=== PATIENT | male | born 1945 | race Caucasian/White ===

== ENCOUNTER → 2017-03-14 | Day surgery (SDC) | payer MEDICARE ==
[~2017-03-14] VITALS: Ht 170.2 cm; Wt 74.4 kg
[~2017-03-14] MED LIST: ASPI81CH CHEW; BUPIVACAINE HCL PF 0.5% 30 ML VIAL ONE; BUPR150XL PO; CARA1TAB6 PO; CARV3.12 PO; CENTTAB20 PO; CHLORHEXIDINE GLUCONATE 2 % 1 PACK (2 CLOTHS) TOPICAL PRN; CILO100T PO; CIPR500T2 PO; CLOP75TA PO; COZA100T PO; DICY10CA12 PO; DIPH2.5T14 PO; FAMOTIDINE 20 MG/2 ML VIAL ONE; FENO145T2 PO; FERR325T8 PO; FURO20TA PO; GLIM4TAB PO; HEPARIN SODIUM - IV 10,000 UNITS/10 ML VIAL ONE; HYDR-2374 PO; HYDR-3516 PO; HYDR-3583 PO; HYOS0.128 PO; INSULIN HUMAN REGULAR 1,000 UNITS/10 ML VIAL SQ PRN; IOHEXOL 300 MG/ML 100 ML BTL (for Rad CT) IVCONTRAST ONE; IOHEXOL 350 MG/ML 50 ML BTL (for RAD DIAG) ONE; LACTATED RINGER'S 1000 ML INJ 1,000 ML ONE; LACTATED RINGER'S 1000 ML IV PRN; LEVO500T8 PO; LIPI40TA PO; METOPROLOL TARTRATE 25 MG TAB ONE; METOPROLOL TARTRATE 25 MG TAB PO PRN; MIDAZOLAM HCL 2 MG/2 ML VIAL ONE; NEOSTIGMINE 3 MG/3 ML SYR IV ONE; NORMOSOL R INJ 1,000 ML IV ONE; OMEP40CA2 PO; ONDANSETRON HCL 4 MG/2 ML VIAL IV PUSH ONE; POVIDONE IODINE 5% (ANTISEPSIS KIT) 4 APPLICATIONS EACH NARE PRN; PREC50TA PO; PROPOFOL 200 MG/20 ML AMP IV ONE; PROS5TAB PO; RANI150C PO; REGL10TA5 PO; ROSU20 PO; SODIUM CHLORID 0.9% 500 ML IV PRN; TAMS0.4C4 PO; TOPR25TA PO; TRAM50TA PO; ULTR50TA5 PO; VITA100018 PO; VITA500T83 PO; ceFAZolin 2 GM PREMIX 50 ML ONE; ePHEDrine/NS 25 MG/5 ML SYR IV ONE; fentaNYL CITRATE 250 MCG/5 ML AMP ONE
[2017-03-14 10:47] LABS: PROTHROMBIN TIME - PATIENT 10.8 SEC (9.8-11.6)
[2017-03-14 10:57] LABS: BICARBONATE 27.4 MEQ/L (21.0-32.0); POTASSIUM 4.1 MEQ/L (3.5-5.1)
--- NOTE | 2017-03-14 11:01 | EKG ---
Date Performed: 03/14/2017 Time Performed: 09:24:15 PTAGE: 71 years EKG: Sinus rhythm WITH SINUS ARRHYTHMIA LEFT AXIS DEVIATION ST/T-WAVE ABNORMALITY, CONSIDER ANTEROLATERAL ISCHEMIA ABN ORMAL ECG NO PREVIOUS TRACING DOCTOR: Shaq Luz Interpretating Date/Time 03/14/2017 11:01:21
--- NOTE | 2017-03-14 11:36 | PD.VS.PN ---
Pre-operative Note Pre-operative diagnosis: chronic symptomatic mesenteric ischemia Planned procedure: mesenteric angiogram/DEPARTMENT STORE GENERAL MANAGER/stent Interval History: Pt has no interval changes since I saw him in clinic on Saturday. Labs: Laboratory Results Test 03/14/17 10:20 Anion Gap 7 MEQ/L (5-15) Blood Urea Nitrogen 17 MG/DL (7-18) Creatinine 1.01 MG/DL (0.60-1.30) Random Glucose 133 MG/DL (74-106) Calcium Level 7.9 MG/DL (8.5-10.1) Sodium Level 138 MEQ/L (136-145) Potassium Level 4.1 MEQ/L (3.5-5.1) Chloride Level 104 MEQ/L (98-107) Carbon Dioxide Level 27.4 MEQ/L (21.0-32.0) Prothromb Time International Ratio 1.0 RATIO Blood: none needed Orders: NPO Ancef 2g IV OCTOR Post-operative destination: PACU Operative site marked: No Consent: Informed consent has been obtained from Jefferson Streeter. I have explained the procedure in detail and discussed the risks, benefits, and potential complications. All questions have been answered. Jose Chau MD Mar 14, 2017 11:36
[2017-03-14 12:10] LABS: AUTOMATED NEUTROPHIL # 8.1 TH/MM3 (1.8-7.7); BASOPHIL % 0.4 % (0.0-2.0); EOSINOPHIL % 0.3 % (0.0-4.0); HEMATOCRIT 31.4 % (39.0-51.0); HEMO FLAGS DIFF FINAL; LYMPH % 13.8 % (9.0-44.0); LYMPHOCYTE # 1.4 TH/MM3 (1.0-4.8); MEAN CELL VOLUME 88.4 FL (80.0-100.0); MEAN CORPUSCULAR HEMOGLOBIN 28.5 PG (27.0-34.0); MEAN CORPUSCULAR HGB CONC 32.2 % (32.0-36.0); MONO % 7.2 % (0.0-8.0); NEUT % 78.3 % (16.0-70.0); PLATELET COUNT 311 TH/MM3 (150-450); RED BLOOD COUNT 3.55 MIL/MM3 (4.50-5.90); RED CELL DISTRIBUTION WIDTH 18.5 % (11.6-17.2); WHITE BLOOD COUNT 10.3 TH/MM3 (4.0-11.0)
--- NOTE | 2017-03-14 13:43 | HHI.PR ---
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
--- NOTE | 2017-03-14 16:20 | ECHRPT ---
Indication: EF assessment for CHF CONCLUSIONS Limited study Mildly dilated left ventricle. Wall thickness is measured at the upper limits of normal. The left ventricular systolic function is severely reduced with an estimated ejection fraction in th e range of 30-35%. There is diffuse global hypokinesis with distinct regional wall motion abnormalities. The left atrial size is upper limits of normal. A left sided pleural effusion is noted. BP: / HR: Rhythm: Sinus Technical Quality:Fair FINDINGS LEFT VENTRICLE Mildly dilated left ventricle. Wall thickness is measured at the upper limits of normal. The left ventricular systolic function is severely reduced with an estimated ejection fraction in th e range of 30-35%. There is diffuse global hypokinesis with distinct regional wall motion abnormalities. LEFT ATRIUM The left atrial size is upper limits of normal. PERICARDIUM A left sided pleural effusion is noted. Brenden Garcia MD, FACC (Electronically Signed) Final Date:14 March 2017 16:19
[2017-03-14 16:47] VITALS: BP 144/56; PULSE 68; RESP 16; TEMP 97.6; O2SAT 99
--- NOTE | 2017-03-16 23:59 | MP ---
cc: JOSÉ MIGUEL CHAU MD DATE OF SURGERY 03/14/17 PREOPERATIVE DIAGNOSIS Chronic mesenteric ischemia. POSTOPERATIVE DIAGNOSIS Chronic mesenteric ischemia. PROCEDURE Abdominal aortogram. MEDICATIONS José Miguel Chau MD INTERNATIONAL SALES MANAGER SURGEON Nain Kenyon ANESTHESIA Genera. INDICATION Mr. Streeter is a 71-year-old gentleman with mesenteric ischemia manifesting as post prandial abdominal pain. He is taken to the operating room for angiographic evaluation and potential treatment. There is no prior catheter based imaging for my review. 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 DESCRIPTION OF PROCEDURE Informed consent was obtained. The patient is taken to the operating room, placed supine on the operating table. Appropriate time-out was taken to ensure the patient, the operation site and planned procedure. The administration of 2 grams of Ancef was initiated prior to skin incision and will be discontinued after single preoperative dose. Everyone in the room agreed to time-out and we proceeded. His left arm was prepped and draped and locally anesthetized with 1% lidocaine. An incision was made over the distal antecube and carried down to subcutaneous tissue with electrocautery. The brachial artery was identified, dissected free of several centimeters. The patient was systemically heparinized with 3000 of IV heparin. A 21 gauge micropuncture needle was used to access the brachial artery. This was exchanged using Seldinger technique for micropuncture sheath through which a 0.035 Glidewire was introduced, the micropuncture was exchanged for a 5-Turkish sheath and the Glidewire was navigated to the aortic arch and a pigtail catheter was placed over this. Using the pigtail and Glidewire we were able to navigate down into the perivisceral aorta. The lateral aortogram was obtained. This showed the patient had occlusions of both the SMA and celiac. The Glidewire was introduced. The pigtail was removed. The 5-Turkish sheath was removed and a 7-Turkish 70 cm sheath was introduced. Multiple attempts using an MPA catheter for directionality and a vertebral catheter for directionality were made to traverse the SMA occlusion but these were unsuccessful. Wire, catheter and sheath removed. The brachial artery was repaired with 6-0 Prolene sutures. The wound was infiltrated with lidocaine and closed with 3-0 Polysorb and 4-0 Monocryl. At the conclusion of the case the patient had a patent ulnar artery as the patient had a prior radial artery harvest for a coronary bypass. The patient is awoke from anesthesia and transferred to the recovery room in stable condition. I was present, scrubbed and performed the entire procedure. INTERPRETATION The patient has a patent infrarenal aorta with a small infrarenal aortic aneurysm. 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 José Miguel Chau MD RJF/GAGE /4:52 PM /11:38 PM MTDJeff
== END | disposition home or self-care (01) ==
LOC: HSDC 08:22
PROVIDERS: ATTEND Surgery
DX: K55.1 Chronic vascular disorders of intestine (principal); I71.9 Aortic aneurysm of unspecified site, without rupture; I73.9 Peripheral vascular disease, unspecified; E11.9 Type 2 diabetes mellitus without complications; E78.5 Hyperlipidemia, unspecified; R06.81 Apnea, not elsewhere classified; I65.29 Occlusion and stenosis of unspecified carotid artery; I25.2 Old myocardial infarction; E78.00 Pure hypercholesterolemia, unspecified; Z79.84 Long term (current) use of oral hypoglycemic drugs; Z87.891 Personal history of nicotine dependence
CPT/HCPCS: 01916; 36246; 75736; 80048; 82948; 85025; 85610; 86850; 86900; 86901; 86902; 86920; 86922; 93005; 93308; C1769; J0690; J1644; J2250; J2405; J2710; J3010; J7120; Q9967

== ENCOUNTER 2017-04-02 08:30 | Inpatient (IN) | payer MEDICARE ==
[~2017-04-02] VITALS: Ht 170.2 cm; Wt 79.0 kg
[~2017-04-02 08:30] MED LIST changes: -BUPIVACAINE HCL PF 0.5% 30 ML VIAL ONE; -CARA1TAB6 PO; -CARV3.12 PO; -CENTTAB20 PO; -CHLORHEXIDINE GLUCONATE 2 % 1 PACK (2 CLOTHS) TOPICAL PRN; -CIPR500T2 PO; -CLOP75TA PO; -DICY10CA12 PO; -DIPH2.5T14 PO; -FAMOTIDINE 20 MG/2 ML VIAL ONE; -FENO145T2 PO; -FURO20TA PO; -HEPARIN SODIUM - IV 10,000 UNITS/10 ML VIAL ONE; -HYDR-2374 PO; -HYDR-3516 PO; -HYDR-3583 PO; -HYOS0.128 PO; -INSULIN HUMAN REGULAR 1,000 UNITS/10 ML VIAL SQ PRN; -IOHEXOL 300 MG/ML 100 ML BTL (for Rad CT) IVCONTRAST ONE; -IOHEXOL 350 MG/ML 50 ML BTL (for RAD DIAG) ONE; -LACTATED RINGER'S 1000 ML INJ 1,000 ML ONE; -LACTATED RINGER'S 1000 ML IV PRN; -LEVO500T8 PO; -LIPI40TA PO; -METOPROLOL TARTRATE 25 MG TAB ONE; -METOPROLOL TARTRATE 25 MG TAB PO PRN; -MIDAZOLAM HCL 2 MG/2 ML VIAL ONE; -NEOSTIGMINE 3 MG/3 ML SYR IV ONE; -NORMOSOL R INJ 1,000 ML IV ONE; -OMEP40CA2 PO; -ONDANSETRON HCL 4 MG/2 ML VIAL IV PUSH ONE; -POVIDONE IODINE 5% (ANTISEPSIS KIT) 4 APPLICATIONS EACH NARE PRN; -PREC50TA PO; -PROPOFOL 200 MG/20 ML AMP IV ONE; -RANI150C PO; -SODIUM CHLORID 0.9% 500 ML IV PRN; -TAMS0.4C4 PO; -TOPR25TA PO; -TRAM50TA PO; -ULTR50TA5 PO; -VITA100018 PO; -ceFAZolin 2 GM PREMIX 50 ML ONE; -ePHEDrine/NS 25 MG/5 ML SYR IV ONE; -fentaNYL CITRATE 250 MCG/5 ML AMP ONE
[2017-04-08 14:23] LABS: HEMATOCRIT 31.8 % (39.0-51.0); MEAN CELL VOLUME 87.9 FL (80.0-100.0); MEAN CORPUSCULAR HEMOGLOBIN 28.9 PG (27.0-34.0); MEAN CORPUSCULAR HGB CONC 32.9 % (32.0-36.0); PLATELET COUNT 313 TH/MM3 (150-450); RED BLOOD COUNT 3.61 MIL/MM3 (4.50-5.90); REVIEW FLAG FINAL
[2017-04-08 14:29] LABS: BLOOD, URINE NEG (NEG); GLUCOSE,URINE NEG (NEG); HYALINE CAST, URINE 7 /lpf (RARE); KETONE, URINE NEG (NEG); NITRITE,URINE NEG (NEG); SQUAMOUS EPITHELIAL CELL URINE <1 /hpf (0-5); URINE COLOR YELLOW (YELLW/STRAW)
[2017-04-08 14:32] LABS: COMMENT (UR) CULT NOT INDICATED; CULTURE IF INDICATED CULT NOT INDICATED
[2017-04-08 14:38] LABS: PROTHROMBIN TIME - PATIENT 10.6 SEC (9.8-11.6)
[2017-04-08] MEDS ORDERED: DIPH2.5T14 PO (14:38)
[2017-04-08] MEDS ORDERED: CARV3.12 PO (14:38)
[2017-04-08] MEDS ORDERED: FURO20TA PO (14:38)
[2017-04-08] MEDS ORDERED: VITA100018 PO (14:38)
[2017-04-08] MEDS ORDERED: CENTTAB20 PO (14:38)
[2017-04-08] MEDS ORDERED: RANI150C PO (14:38)
[2017-04-08] MEDS ORDERED: FENO145T2 PO (14:38)
[2017-04-08] MEDS ORDERED: DICY10CA12 PO (14:38)
[2017-04-08] MEDS ORDERED: TRAM50TA PO (14:38)
[2017-04-08] MEDS ORDERED: TAMS0.4C4 PO (14:38)
[2017-04-08] MEDS ORDERED: CLOP75TA PO (14:38)
[2017-04-08] MEDS ORDERED: OMEP40CA2 PO (14:38)
[2017-04-08] MEDS ORDERED: HYDR-3583 PO (14:38)
[2017-04-08] MEDS ORDERED: HYOS0.128 PO (14:38)
[2017-04-08 14:45] LABS: BICARBONATE 28.9 MEQ/L (21.0-32.0); POTASSIUM 3.7 MEQ/L (3.5-5.1)
[2017-04-09] VITALS (10 sets, daily range): BP systolic 93–115; BP diastolic 30–51; PULSE 92–103; RESP 15–18; TEMP 97.6–98.1; O2SAT 95–100
[2017-04-09] MEDS: LACTATED RINGER'S 1000 ML IV PRN ×2 (07:00→15:52)
[2017-04-09] MEDS ORDERED: INSULIN HUMAN REGULAR 1,000 UNITS/10 ML VIAL SQ PRN (07:15)
[2017-04-09] MEDS ORDERED: SODIUM CHLORID 0.9% 500 ML IV PRN (07:15)
[2017-04-09] MEDS ORDERED: POVIDONE IODINE 5% (ANTISEPSIS KIT) 4 APPLICATIONS EACH NARE PRN (07:15)
[2017-04-09] MEDS ORDERED: CHLORHEXIDINE GLUCONATE 2 % 1 PACK (2 CLOTHS) TOPICAL PRN (07:15)
[2017-04-09] MEDS ORDERED: METOPROLOL TARTRATE 25 MG TAB PO PRN (07:15)
[2017-04-09] MEDS ORDERED: IRR SCH (07:30)
[2017-04-09] MEDS ORDERED: SODIUM CHLORIDE 0.9% SCH (07:30)
[2017-04-09] MEDS ORDERED: RIFAMPIN SCH (07:30)
[2017-04-09] MEDS ORDERED: CARV3.12 PO (07:38)
[2017-04-09] MEDS ORDERED: SUGAMMADEX SODIUM 200 MG/2 ML VIAL IV PUSH ONE ×2 (08:10)
--- NOTE | 2017-04-09 08:29 | PD.VS.PN ---
Pre-operative Note Pre-operative diagnosis: chronic mesenteric ischemia Planned procedure: mesenteric bypass Interval History: Pt has been feeling well, no peritonitis. Labs: pending Blood: T&C 4U EKG: TTE showed EF 35% Imaging: CTA reviewed - anatomy amenable to mesenteric bypass off supraceliac aorta Operative site marked: No (N/A (midline)) Consent: Informed consent has been obtained from Jefferson Streeter. I have explained the procedure in detail and discussed the risks, benefits, and potential complications. All questions have been answered. Jose Chau MD Apr 09, 2017 08:29
[2017-04-09] MEDS: ceFAZolin 2 GM PREMIX 50 ML ONE ×2 (09:00→10:00)
[2017-04-09] MEDS ORDERED: GLUCAGON 1 MG/ML VIAL OTHER PRN (09:15)
[2017-04-09] MEDS ORDERED: DICYCLOMINE HCL 10 MG CAP PO PRN (09:15)
[2017-04-09] MEDS ORDERED: DIPHENOXYLATE/ATROPINE 2.5 MG/0.025 MG TAB PO PRN (09:15)
[2017-04-09] MEDS ORDERED: DEXTROSE 50% IN WATER 50 ML VIAL(D50) IV PUSH PRN (09:15)
[2017-04-09] MEDS ORDERED: NALOXONE HCL 0.4 MG/ML AMP IV PUSH PRN (09:15)
[2017-04-09] MEDS: ENOXAPARIN SODIUM 30 MG/0.3 ML SYRINGE SQ SCH (10:00)
[2017-04-09] MEDS ORDERED: HEPARIN-NS/PF INJ 500 ML ONE (10:16)
[2017-04-09] MEDS ORDERED: THROMBIN (TOPICAL) 20,000 UNIT SPRAY KIT ONE ×2 (10:16→12:32)
[2017-04-09] MEDS: INSULIN ASPART SUPPLEMENTAL SCALE SQ SCH ×3 (12:00→21:01)
[2017-04-09] MEDS: METOCLOPRAMIDE HCL 10 MG TAB PO SCH ×2 (12:00→17:14)
[2017-04-09] MEDS ORDERED: ACETAMINOPHEN 1000 MG/100 ML 100 ML IV ONE (12:34)
[2017-04-09] MEDS ORDERED: ceFAZolin INJ 1,000 MG VIAL IV ONE (12:51)
--- NOTE | 2017-04-09 13:27 | HHI.PR ---
Immediate Post Op Note Procedure Date: Apr 09, 2017 Pre Op Diagnosis: chronic mesenteric ischemia Post Op Diagnosis: chronic mesenteric ischemia Surgeon: Jose Chau Mine Supervisor(s): Dara Reagan Procedure: Aortoceliac and Aorto-SMA bypass with 12x6 Dacron Findings: Patent graft pulses and normal bowel and liver appearance post-operatively Complications: none apparent Specimen(s) removed: none Estimated blood loss: 700mL Anesthesia: General Drains: None Fluids: 5000mL x'oid; 2u FFP; 2u PRBC IVF Patient to: Other ([facility]) Patient Condition: Fair Implant/Devices: SEE IMPLANT LOG (if applicable) Date/Time of Procedure: SEE SURGICAL CARE RECORD Jose Chau MD Apr 09, 2017 13:27
[2017-04-09] MEDS: PCA - TOTAL MG MORPHINE DELIVERED PER SHIFT SCH ×2 (14:00→22:00)
--- NOTE | 2017-04-09 14:48 | RADRPT ---
EXAM DATE/TIME: 04/09/2017 14:04 [facility] COMPARISON: CHEST PA & LAT, April 08, 2017, 15:14. INDICATIONS : Central line placement. MEDICAL HISTORY : None. SURGICAL HISTORY : cardiac bypass ENCOUNTER: Initial ACUITY: 1 day PAIN SCORE: Non-responsive. LOCATION: Bilateral chest FINDINGS: There is a nasogastric tube present. The distal portion of the tube is not visualized. The tube does appear to overlie the stomach. The heart is normal in size. The lungs are clear. There is no pneumothorax. The patient is post median sternotomy. The top 2 sternal wires are no longer intact. The request states evaluate central line placement. No central venous catheter is seen. There is an abnormal appearance of the right clavicle suggesting a possible right clavicular fracture . Repeat, dedicated films of the clavicle is warranted. CONCLUSION: 1. Possible fracture of the right clavicle. Dedicated films of the clavicle would be of benefit for f urther assessment. 2. The lungs are clear. 3. No central venous catheter identified. Dionte Bush MD on April 09, 2017 at 14:44 Board Certified Radiologist. This report was verified electronically.
[2017-04-09 15:01] LABS: HEMATOCRIT 22.6 % (39.0-51.0); MEAN CELL VOLUME 87.3 FL (80.0-100.0); MEAN CORPUSCULAR HEMOGLOBIN 28.4 PG (27.0-34.0); MEAN CORPUSCULAR HGB CONC 32.6 % (32.0-36.0); PLATELET COUNT 201 TH/MM3 (150-450); RED BLOOD COUNT 2.59 MIL/MM3 (4.50-5.90); RED CELL DISTRIBUTION WIDTH 16.1 % (11.6-17.2); REVIEW FLAG FINAL; WHITE BLOOD COUNT 15.5 TH/MM3 (4.0-11.0)
[2017-04-09] MEDS: MORPHINE SULFATE 30 MG/30 ML PCA IV SCH (15:12)
[2017-04-09 15:28] LABS: BICARBONATE 27.5 MEQ/L (21.0-32.0)
[2017-04-09 15:29] LABS: INTERNATIONAL NORMALIZED RATIO 1.1 RATIO; PROTHROMBIN TIME - PATIENT 11.7 SEC (9.8-11.6)
[2017-04-09] MEDS ORDERED: ceFAZolin 1,000 MG/NS 100 ML IV ONE ×2 (15:30)
[2017-04-09 15:41] LABS: CALCIUM-PROTEIN CORRECTED 8.6 MG/DL (8.5-10.1)
[2017-04-09] MEDS ORDERED: SODIUM CHLOR 0.9% 1000 ML INJ 1,000 ML IV SCH (16:00)
[2017-04-09] MEDS ORDERED: SODIUM CHLOR 0.9% 250 ML INJ 250 ML IV ONE (16:00)
--- NOTE | 2017-04-09 16:18 | PD.CONS ---
HPI Service Critical Care Medicine Consult Requested By Dr. Chau, [facility] Surgery Reason for Consult Coronary artery disease, cardiomyopathy with ejection fraction 35%, with noted MAC Primary Care Physician Non-Staff History of Present Illness This is a 71-year-old male who presented with chronic mesenteric ischemia and is S/P mesenteric bypass . Patient's history is significant for atherosclerosis with a history of PA and has underwent a CABG in 1998 as well as endovascular angioplasties with right femoral stent placement in 2005, as well as carotid stenosis with left CEA. Upon evaluation for surgery the patient was noted to have a small 3.7 cm AAA. The patient underwent mesenteric bypass and received 5 L of crystalloid, 2 units of FFP, 2 units of packed red blood cells. Acute pain management currently is SENIOR ANIMAL TRAINER with morphine. The patient has a history of obstructive sleep apnea, upon evaluation the patient does not utilize his BiPAP machine regularly with current O2 sat ranging 94-95% . Currently systolic blood pressure high 80s to low 90 .Critical care medicine was consulted. Review of Systems ROS Limitations: Clinical Condition Past Family Social History Allergies: Coded Allergies: No Known Allergies (Unverified , 04/09/17) Past Medical History PAD, PVD, hyperlipidemia, history of PA, diabetes mellitus, BPH, MAC Past Surgical History CABG, bilateral lower extremity endovascular interventions to include right femoral stent placement, right peroneal angioplasty, left SFA angioplasty, left external iliac angioplasty Reported Medications see MAR Active Ordered Medications see MAR Family History Unable to obtain due to patient's clinical condition extremely lethargic postoperatively Social History 30 year pack year history of smoking, quit 1998 Physical Exam Vital Signs Vital Signs Date Time Temp Pulse Resp B/P (MAP) Pulse Ox O2 Delivery O2 Flow Rate FiO2 04/09/17 15:31 94 04/09/17 15:23 97.6 93 18 115/30 (58) 95 04/09/17 15:21 18 04/09/17 15:12 18 04/09/17 07:43 97.9 69 20 156/62 (93) 100 Physical Exam GENERAL: Well-developed well-nourished male, lethargic but easily arousable SKIN: Warm and dry. HEAD: Atraumatic. Normocephalic. EYES: Pupils equal and round. No scleral icterus. No injection or drainage. ENT: No nasal bleeding or discharge. Mucous membranes pink and moist. NECK: Trachea midline. No JVD. Well-healed left neck scar CARDIOVASCULAR: Normal rate, regular rhythm. RESPIRATORY: No accessory muscle use. Clear to auscultation. Breath sounds equal bilaterally. O2 saturation 95% on 3 L GASTROINTESTINAL: Abdomen soft, non-tender, nondistended. Incision was Dermabond, no erythema drainage noted Hypoactive bowel sounds MUSCULOSKELETAL: Extremities without clubbing, cyanosis, or edema. No obvious deformities. NEUROLOGICAL lethargic, easily arousable. GCS 15. No gross focal/sensory deficits. Follows commands in all 4 extremities. Laboratory Laboratory Tests Test 04/09/17 14:15 White Blood Count 15.5 Red Blood Count 2.59 Hemoglobin 7.4 Hematocrit 22.6 Mean Corpuscular Volume 87.3 Mean Corpuscular Hemoglobin 28.4 Mean Corpuscular Hemoglobin Concent 32.6 Red Cell Distribution Width 16.1 Platelet Count 201 Mean Platelet Volume 7.9 Prothrombin Time 11.7 Prothromb Time International Ratio 1.1 Blood Urea Nitrogen 16 Creatinine 0.84 Random Glucose 205 Total Protein 5.0 Calcium Level 7.4 Sodium Level 140 Potassium Level 4.0 Chloride Level 105 Carbon Dioxide Level 27.5 Anion Gap 8 Estimat Glomerular Filtration Rate 90 Protein Corrected Calcium 8.6 Result Diagram: 04/09/17 1415 04/09/17 1415 Imaging Last Impressions Chest X-Ray 04/09/17 0000 Signed Impressions: Service Date/Time: Sunday, April 09, 2017 14:04 - CONCLUSION: 1. Possible fracture of the right clavicle. Dedicated films of the clavicle would be of benefit for further assessment. 2. The lungs are clear. 3. No central venous catheter identified. Dionte Bush MD Septic Shock Reassessment Heart: Regular rate and rhythm Lungs: Clear Skin: Warm Peripheral Pulses: Bounding Right Radial Bounding Left Radial Bounding Right Dorsalis Pedis Bounding Left Dorsalis Pedis Assessment and Plan Assessment and Plan ASSESSMENT S/P mesenteric bypass Anemia Cardiomyopathy Hyperlipidemia MAC Diabetes mellitus BPH Hypotension PLAN Neurologic: Postop pain Currently SENIOR ANIMAL TRAINER morphine 1 mg every 6 minutes on demand only. Patient has history of MAC Ofirmev 1 g every 6 hours Respiratory: Maintain O2 sat greater than 92% Begin incentive spirometry in a.m. BiPAP at night, Have available at bedside Cardiovascular: Renal: Maintain Mcdermott -- Strict I/Os FEN/GI: Maintenance fluid NS 50cc/hr NG tube to low continuous suction Electrolyte replacement per ICU protocol Nothing by mouth, with the exception of medications Bowel regimen Heme/ID: Hemoglobin postoperatively 7.4. Transfuse 1 unit Obtain cultures only if clinically indicated WBC slightly elevated most likely reactive leukocytosis postoperatively Endocrine: Glucose monitoring per ICU protocol -- SSI Prophylaxis: GI Prophylaxis Protonix, Pepcid DVT Prophylaxis -- SCDs. Lovenox to be initiated on recommendations of vascular surgery Lines: Peripheral IVs providing adequate access at this time. Right radial Art line. Dispo: my billing statement This patient remains critically ill with one or more organ systems which are or may become a threat to life. I have spent in excess of 30 minutes discontinuously in the care and management of this patient. This time is exclusive of procedures, and includes, but is not limited to, evaluation of the patient, review of the medical record, discussions with family, consultants, nursing staff, or respiratory therapy, and documentation in the medical record. Code Status Full Discussed Condition With CIVIL DESIGN TECHNICIAN at bedside. Eva Roach MD Apr 09, 2017 16:18
[2017-04-09] MEDS: ACETAMINOPHEN 1000 MG/100 ML VIAL IV SCH (18:34)
[2017-04-09 19:57] LABS: HEMATOCRIT 24.4 % (39.0-51.0); MEAN CELL VOLUME 85.9 FL (80.0-100.0); MEAN CORPUSCULAR HEMOGLOBIN 28.4 PG (27.0-34.0); PLATELET COUNT 182 TH/MM3 (150-450); RED BLOOD COUNT 2.84 MIL/MM3 (4.50-5.90); RED CELL DISTRIBUTION WIDTH 15.9 % (11.6-17.2); REVIEW FLAG FINAL; WHITE BLOOD COUNT 16.1 TH/MM3 (4.0-11.0)
[2017-04-09] MEDS: buPROPion HCL 150 MG SUSTAINED RELEASE TAB PO SCH (20:58)
[2017-04-09] MEDS: CARVEDILOL 6.25 MG TAB PO SCH (21:00)
[2017-04-09] MEDS: FUROSEMIDE 20 MG TAB PO SCH (21:00)
[2017-04-09] MEDS: LOSARTAN 50 MG TAB PO SCH (21:00)
[2017-04-09] MEDS: FENOFIBRATE 145 MG TAB PO SCH (21:00)
[2017-04-09] MEDS: TAMSULOSIN HCL 0.4 MG CAP PO SCH (21:00)
[2017-04-09] MEDS: ATORVASTATIN 40 MG TAB PO SCH (21:00)
[2017-04-09] MEDS: GLIMEPIRIDE 4 MG TAB PO SCH (21:00)
[2017-04-09] MEDS: prednisoLONE ACETATE 1% OPHT SUSP 5 ML BTL EACH EYE SCH (21:14)
[2017-04-09 22:57] LABS: HEMATOCRIT 24.3 % (39.0-51.0); REVIEW FLAG FINAL
[2017-04-09 23:16] LABS: PROTHROMBIN TIME - PATIENT 11.4 SEC (9.8-11.6)
[2017-04-10] VITALS (9 sets, daily range): BP systolic 90–136; BP diastolic 45–63; PULSE 95–100; RESP 15–18; TEMP 97.8–98.8; O2SAT 95–99
[2017-04-10] MEDS: ACETAMINOPHEN 1000 MG/100 ML VIAL IV SCH ×4 (03:31→18:22)
[2017-04-10 04:46] LABS: HEMATOCRIT 25.6 % (39.0-51.0); MEAN CELL VOLUME 84.9 FL (80.0-100.0); MEAN CORPUSCULAR HEMOGLOBIN 28.8 PG (27.0-34.0); PLATELET COUNT 163 TH/MM3 (150-450); RED BLOOD COUNT 3.01 MIL/MM3 (4.50-5.90); REVIEW FLAG FINAL; WHITE BLOOD COUNT 12.9 TH/MM3 (4.0-11.0)
[2017-04-10 05:09] LABS: BICARBONATE 26.4 MEQ/L (21.0-32.0); INDIRECT BILIRUBIN 0.3 MG/DL (0.0-0.8); POTASSIUM 4.2 MEQ/L (3.5-5.1); TOTAL BILIRUBIN ADULT 0.5 MG/DL (0.2-1.0)
[2017-04-10 05:15] LABS: CALCIUM-PROTEIN CORRECTED 8.5 MG/DL (8.5-10.1)
[2017-04-10] MEDS: PCA - TOTAL MG MORPHINE DELIVERED PER SHIFT SCH ×3 (05:53→22:00)
[2017-04-10] MEDS: MORPHINE SULFATE 30 MG/30 ML PCA IV SCH ×2 (06:30→18:21)
--- NOTE | 2017-04-10 07:00 | PD.VS.PN ---
Subjective POD #: 1 Procedure(s): mesenteric bypass Subjective/Hospital Course borderline hypotensive last night (90's) but responded to fluid UOP marginal this morning, looks good Objective Neuro: alert, HANSON, c/o incisional pain but using CULLET CRUSHER AND WASHER Pulmonary: nonlabored breathing, good sats on NC O2 post-op CXR clear Cardiac: reg rate, HR 90s most of night bp 90/50 to 150-90 FEN/GI: NPO; NGT - bilious output elevated transaminase expected given reperfusion and liver mobilization intra-op : UOP avg 20cc/h (10-40); creatinine increased to 1.7 ID Antibiotics(date/duration): none ID Cultures: none Heme: Hct 26 plt 163 INR 1.0 Vascular: Feet warm, perfused (h/o PAD) Laboratory Laboratory Tests Test 04/09/17 14:15 04/09/17 19:42 04/09/17 22:46 04/10/17 04:18 White Blood Count 15.5 16.1 12.9 Red Blood Count 2.59 2.84 3.01 Hemoglobin 7.4 8.1 7.9 8.7 Hematocrit 22.6 24.4 24.3 25.6 Mean Corpuscular Volume 87.3 85.9 84.9 Mean Corpuscular Hemoglobin 28.4 28.4 28.8 Mean Corpuscular Hemoglobin Concent 32.6 33.0 34.0 Red Cell Distribution Width 16.1 15.9 16.0 Platelet Count 201 182 163 Mean Platelet Volume 7.9 7.8 8.4 Prothrombin Time 11.7 11.4 Prothromb Time International Ratio 1.1 1.0 Blood Urea Nitrogen 16 27 Creatinine 0.84 1.76 Random Glucose 205 167 Total Protein 5.0 5.1 Calcium Level 7.4 7.4 Sodium Level 140 141 Potassium Level 4.0 4.2 Chloride Level 105 106 Carbon Dioxide Level 27.5 26.4 Anion Gap 8 9 Estimat Glomerular Filtration Rate 90 38 Protein Corrected Calcium 8.6 8.5 Activated Partial Thromboplast Time 25.0 Albumin 2.5 Alkaline Phosphatase 46 Aspartate Amino Transf (AST/SGOT) 343 Alanine Aminotransferase (ALT/SGPT) 237 Total Bilirubin 0.5 Direct Bilirubin 0.2 Indirect Bilirubin 0.3 Imaging Last 48 hours Impressions Chest X-Ray 04/09/17 0000 Signed Impressions: Service Date/Time: Sunday, April 09, 2017 14:04 - CONCLUSION: 1. Possible fracture of the right clavicle. Dedicated films of the clavicle would be of benefit for further assessment. 2. The lungs are clear. 3. No central venous catheter identified. Dionte Bush MD Assessment and Plan Plan POD#1 s/p mesenteric bypass still volume avid as expected 1. Increase MIVF to 84/h 2. Recheck BMP, CBC at 1400 3. OOB TC 4. NPO except ice chips; keep NGT to LCWS Jose Chau MD Apr 10, 2017 07:00
[2017-04-10] MEDS: D5-1/2 NS + KCL 20 MEQ INJ 1,000 ML IV SCH ×2 (07:39→18:21)
[2017-04-10] MEDS: INSULIN ASPART SUPPLEMENTAL SCALE SQ SCH ×4 (07:40→21:00)
[2017-04-10] MEDS: METOCLOPRAMIDE HCL 10 MG TAB PO SCH ×3 (07:40→17:35)
[2017-04-10] MEDS: ASPIRIN 81 MG CHEW TAB CHEW SCH (08:30)
[2017-04-10] MEDS: FINASTERIDE 5 MG TAB PO SCH (08:30)
[2017-04-10] MEDS: FAMOTIDINE 20 MG TAB PO SCH (08:30)
[2017-04-10] MEDS: TAMSULOSIN HCL 0.4 MG CAP PO SCH ×2 (08:30→22:09)
[2017-04-10] MEDS: CARVEDILOL 6.25 MG TAB PO SCH ×2 (08:30→22:08)
[2017-04-10] MEDS: CHOLECALCIFEROL (VIT D3) 1000 UNIT TAB PO SCH (08:30)
[2017-04-10] MEDS: MULTIVITAMINS/MINERALS THERAPEUTIC TAB PO SCH (08:30)
[2017-04-10] MEDS: GLIMEPIRIDE 4 MG TAB PO SCH ×2 (08:31→22:08)
[2017-04-10] MEDS: PANTOPRAZOLE SOD 40 MG DELAYED RELEASE TAB PO SCH (08:31)
[2017-04-10] MEDS: prednisoLONE ACETATE 1% OPHT SUSP 5 ML BTL EACH EYE SCH ×2 (08:31→22:09)
[2017-04-10] MEDS: buPROPion HCL 150 MG SUSTAINED RELEASE TAB PO SCH ×2 (08:35→22:08)
[2017-04-10] MEDS ORDERED: NON-FORMULARY DRUG (Ascorbic Acid ER (Vitamin C ER) 1,000 MG) PO SCH (09:00)
[2017-04-10] MEDS: ENOXAPARIN SODIUM 30 MG/0.3 ML SYRINGE SQ SCH (10:00)
--- NOTE | 2017-04-10 10:31 | MP ---
cc: JOSÉ MIGUEL CHAU MD DATE OF SURGERY 04/09/2017 PREOPERATIVE DIAGNOSIS Chronic mesenteric ischemia. POSTOPERATIVE DIAGNOSIS Chronic mesenteric ischemia. PROCEDURE 1. Aorta celiac bypass. 2. Aorta SMA bypass. MEDICATIONS José Miguel Chau MD ANESTHESIA General INDICATIONS Mr. Streeter is an 71-year-old gentleman with chronic mesenteric ischemia, ventral artery occlusive disease and post prandial abdominal pain and an intentional 40 pounds weight loss. He is taken off room for mesenteric bypass after failed endovascular therapy. DESCRIPTION OF THE PROCEDURE Informed consent was obtained from the patient. He was taken to the operating room and placed supine on the operating room table and an appropriate time-out was taken to ensure the patient's identity, operative site and planned procedure. The administration of two grams of Kefzol was initiated prior to the skin incision and will be discontinued after a single preoperative dose. Everyone in the room agreed with the time-out and we proceeded. A midline incision was made in the patient's xiphoid down to his umbilicus, carried down through the subcutaneous tissue with electrocautery. The fascia was divided with electrocautery and the peritoneum was sharply divided. The abdominal contents were explored and there was no untoward pathology. The left lobe of the liver was mobilized by dividing the triangular ligament. The kerrie of the diaphragm was divided thereby exposing the supraceliac aorta. In the infra mesenteric abdomen, the superior mesenteric artery was divided by incising the peritoneum and dissecting down to the mesenteric artery. This was easily dissected free and circled with a Vesseloop. The kerrie of the diaphragm was then divided further with electrocautery thereby exposing the supraceliac aorta sufficient enough to place two clamp on this. The dissection was then continued down to the celiac artery which was encircled with a Vesseloop. The patient was systemically heparinized and through the remainder of the case, the ACT was kept greater than 250. Proximal and distal control of the supraceliac aorta was obtained with a Zinger's and a DeBakey aortic clamp and a longitudinal arteriotomy was made with an 11 blade and extended with Corning scissors. A 12 x 6 Dacron was brought up on the field, spatulated and sewn end-to-side with running 4-0 Prolene suture. At the completion, it was flushed and noted to be hemostatic with several pledgeted repair sutures. The posterior limb was cut very short and it was sewn end-to-side to the hepatic artery by clamping the hepatic artery proximally and distally making a longitudinal arteriotomy and filling it end-to-side with running 6-0 Prolene suture. At the completion it was flushed and noted to be hemostatic. There was a nice pulse in the hepatic artery. The SMA limb was then attempted to be brought behind the pancreas, but there was then inflammation and as such was brought medially around the pancreas and the SMA was clamped proximally and distally and a longitudinal arteriotomy was made with an 11 blade and extended with Corning scissors and the SMA limb was cut to an appropriate length, spatulated and sewn end-to-side with running 6-0 Prolene suture. At the completion, it was flushed and noted to be hemostatic. There was nice pulse in the SMA. The bowel appeared viable. The liver appeared viable. The wound was irrigated, made hemostatic. The heparin was reversed with protamine. Two units of FFP were administered. All the wounds made hemostatic and the abdominal cavity was closed with #1 looped PDS, 2-0 Monocryl and 4-0 Polysorb. The sponge and needle counts were correct at the end of the case. I was present, scrubbed and performed the entire procedure. MD NERISSA Duvall/ROBERTO /10:19 PM /9:58 AM
[2017-04-10] MEDS ORDERED: SODIUM CHLORID 0.9% 500 ML INJ 500 ML IV ONE (11:45)
--- NOTE | 2017-04-10 14:16 | HHI.CCPN ---
Subjective Remarks/Hospital Course This is a 71-year-old male who presented with chronic mesenteric ischemia and is S/P mesenteric bypass . Patient's history is significant for atherosclerosis with a history of [place] and has underwent a CABG in 1998 as well as endovascular angioplasties with right femoral stent placement in 2005, as well as carotid stenosis with left CEA. Upon evaluation for surgery the patient was noted to have a small 3.7 cm AAA. The patient underwent mesenteric bypass and received 5 L of crystalloid, 2 units of FFP, 2 units of packed red blood cells. Acute pain management currently is WOMEN'S SOCCER COACH with morphine. The patient has a history of obstructive sleep apnea, upon evaluation the patient does not utilize his BiPAP machine regularly with current O2 sat ranging 94-95% . Currently systolic blood pressure high 80s to low 90 .Critical care medicine was consulted. Subjective: 04/10: Noted low urine output last evening. Patient bolus with 500 cc normal saline IV fluid maintenance increased. Patient out of bed and chair doing well. Pain well controlled Objective Vital Signs Date Time Temp Pulse Resp B/P (MAP) Pulse Ox O2 Delivery O2 Flow Rate FiO2 04/10/17 11:00 98.8 98 18 102/59 (73) 99 117/46 (69) 04/09/17 16:30 Nasal Cannula 2.00 Intake and Output 04/10/17 04/10/17 04/11/17 08:00 16:00 00:00 Intake Total 1937 ml Output Total 225 ml Balance 1712 ml Result Diagram: 04/10/17 0418 04/10/17 0418 Imaging Last Impressions Chest X-Ray 04/09/17 0000 Signed Impressions: Service Date/Time: Sunday, April 09, 2017 14:04 - CONCLUSION: 1. Possible fracture of the right clavicle. Dedicated films of the clavicle would be of benefit for further assessment. 2. The lungs are clear. 3. No central venous catheter identified. Dionte Bush MD Objective Remarks GENERAL: Well-developed well-nourished male, out of bed in a chair, in no acute distress SKIN: Warm and dry. HEAD: Atraumatic. Normocephalic. EYES: Pupils equal and round. No scleral icterus. No injection or drainage. ENT: No nasal bleeding or discharge. Mucous membranes pink and moist. NECK: Trachea midline. No JVD. Well-healed left neck scar CARDIOVASCULAR: Normal rate, regular rhythm. RESPIRATORY: No accessory muscle use. Clear to auscultation. Breath sounds equal bilaterally. O2 saturation 95% on 3 L GASTROINTESTINAL: Abdomen soft, non-tender, nondistended. Incision was Dermabond, no erythema drainage noted Hypoactive bowel sounds NG tube to low continuous suction MUSCULOSKELETAL: Extremities without clubbing, cyanosis, or edema. No obvious deformities. NEUROLOGICAL GCS 15. No gross focal/sensory deficits. Follows commands in all 4 extremities. Urinary Catheter: Yes Mcdermott insert reason: Measure Accurate Output A/P Assessment and Plan ASSESSMENT S/P mesenteric bypass POD #1 Anemia Cardiomyopathy Hyperlipidemia MAC Diabetes mellitus BPH Hypotension AK I PLAN Neurologic: Postop pain Currently WOMEN'S SOCCER COACH morphine 1 mg every 6 minutes on demand only. Patient has history of MAC Ofirmev 1 g every 6 hours Respiratory: Maintain O2 sat greater than 92% Begin incentive spirometry in a.m. BiPAP at night, Have available at bedside Cardiovascular: Renal: Maintain Mcdermott -- Strict I/Os FEN/GI: Maintenance fluid NS 50cc/hr NG tube to low continuous suction Electrolyte replacement per ICU protocol Nothing by mouth, with the exception of medications Creatinine elevated, IV fluids increased, patient bolused gentle hydration with 500 cc, follow-up repeat BMP Bowel regimen Heme/ID: Hemoglobin stable, continue to monitor Obtain cultures only if clinically indicated WBC downtrending, Jessika monitor Endocrine: Glucose monitoring per ICU protocol -- SSI Prophylaxis: GI Prophylaxis Protonix, Pepcid DVT Prophylaxis -- SCDs. Lovenox to be initiated on recommendations of vascular surgery Lines: Peripheral IVs providing adequate access at this time. Right radial Art line. Dispo: Level [address] Chau, patient and CRIMINAL INTELLIGENCE ANALYST @ bedside Physician Eva Rowland MD Apr 10, 2017 14:16
[2017-04-10 15:15] LABS: HEMATOCRIT 23.3 % (39.0-51.0); MEAN CELL VOLUME 86.2 FL (80.0-100.0); MEAN CORPUSCULAR HEMOGLOBIN 28.1 PG (27.0-34.0); MEAN CORPUSCULAR HGB CONC 32.6 % (32.0-36.0); PLATELET COUNT 168 TH/MM3 (150-450); RED CELL DISTRIBUTION WIDTH 16.2 % (11.6-17.2); REVIEW FLAG FINAL; WHITE BLOOD COUNT 16.6 TH/MM3 (4.0-11.0)
[2017-04-10 15:34] LABS: BICARBONATE 25.1 MEQ/L (21.0-32.0); POTASSIUM 4.2 MEQ/L (3.5-5.1)
[2017-04-10] MEDS: FUROSEMIDE 20 MG TAB PO SCH (22:08)
[2017-04-10] MEDS: FENOFIBRATE 145 MG TAB PO SCH (22:08)
[2017-04-10] MEDS: ATORVASTATIN 40 MG TAB PO SCH (22:09)
[2017-04-10] MEDS: LOSARTAN 50 MG TAB PO SCH (22:11)
[2017-04-11] VITALS (15 sets, daily range): BP systolic 134–167; BP diastolic 43–91; PULSE 88–111; RESP 18–20; TEMP 97.4–98.8; O2SAT 90–98
[2017-04-11] MEDS: ACETAMINOPHEN 1000 MG/100 ML VIAL IV SCH ×4 (01:15→20:08)
[2017-04-11 05:05] LABS: MEAN CELL VOLUME 86.1 FL (80.0-100.0); MEAN CORPUSCULAR HEMOGLOBIN 28.4 PG (27.0-34.0); PLATELET COUNT 165 TH/MM3 (150-450); WHITE BLOOD COUNT 17.6 TH/MM3 (4.0-11.0)
[2017-04-11 05:11] LABS: REVIEW FLAG FINAL
[2017-04-11 05:13] LABS: HEMATOCRIT 20.7 % (39.0-51.0)
[2017-04-11 05:53] LABS: BICARBONATE 27.2 MEQ/L (21.0-32.0); POTASSIUM 4.2 MEQ/L (3.5-5.1)
[2017-04-11] MEDS: PCA - TOTAL MG MORPHINE DELIVERED PER SHIFT SCH ×3 (06:00→22:00)
[2017-04-11] MEDS: D5-1/2 NS + KCL 20 MEQ INJ 1,000 ML IV SCH (06:13)
[2017-04-11 06:23] LABS: CALCIUM-PROTEIN CORRECTED 8.4 MG/DL (8.5-10.1)
--- NOTE | 2017-04-11 07:53 | HHI.CCPN ---
Subjective Remarks/Hospital Course This is a 71-year-old male who presented with chronic mesenteric ischemia and is S/P mesenteric bypass . Patient's history is significant for atherosclerosis with a history of [place] and has underwent a CABG in 1998 as well as endovascular angioplasties with right femoral stent placement in 2005, as well as carotid stenosis with left CEA. Upon evaluation for surgery the patient was noted to have a small 3.7 cm AAA. The patient underwent mesenteric bypass and received 5 L of crystalloid, 2 units of FFP, 2 units of packed red blood cells. Acute pain management currently is RELATIONS MANAGER with morphine. The patient has a history of obstructive sleep apnea, upon evaluation the patient does not utilize his BiPAP machine regularly with current O2 sat ranging 94-95% . Currently systolic blood pressure high 80s to low 90 .Critical care medicine was consulted. Subjective: 04/10: Noted low urine output last evening. Patient bolus with 500 cc normal saline IV fluid maintenance increased. Patient out of bed and chair doing well. Pain well controlled. 04/11: Noted hemoglobin level 6.8 this morning. EKG noted to be sinus rhythm/ sinus tach 90's -100. Patient to be transfused 2 units packed red blood cells. Patient's pain well controlled with morphine RELATIONS MANAGER. Patient utilize an incentive spirometry currently only 500 cc Encouraged to utilize during the day to increase volume. Objective Vital Signs Date Time Temp Pulse Resp B/P (MAP) Pulse Ox O2 Delivery O2 Flow Rate FiO2 04/11/17 06:48 20 04/11/17 04:00 103 04/11/17 04:00 98.8 134/59 (84) 94 143/46 (78) 04/10/17 21:23 Nasal Cannula 2.00 Intake and Output 04/11/17 04/11/17 04/12/17 08:00 16:00 00:00 Intake Total 1190 ml Output Total 800 ml Balance 390 ml Result Diagram: 04/11/17 0425 04/11/17 0425 Imaging Last Impressions Chest X-Ray 04/09/17 0000 Signed Impressions: Service Date/Time: Sunday, April 09, 2017 14:04 - CONCLUSION: 1. Possible fracture of the right clavicle. Dedicated films of the clavicle would be of benefit for further assessment. 2. The lungs are clear. 3. No central venous catheter identified. Dionte Bush MD Objective Remarks GENERAL: Well-developed well-nourished male, lying in bed in no acute distress. Heart rate in 90s SKIN: Warm and dry. HEAD: Atraumatic. Normocephalic. EYES: Pupils equal and round. No scleral icterus. No injection or drainage. ENT: No nasal bleeding or discharge. Mucous membranes pink and moist. NECK: Trachea midline. No JVD. Well-healed left neck scar CARDIOVASCULAR: Normal rate, regular rhythm. RESPIRATORY: No accessory muscle use. Clear to auscultation. Breath sounds equal bilaterally. O2 saturation 95% on 3 L GASTROINTESTINAL: Abdomen soft, non-tender, nondistended. Incision was Dermabond, no erythema drainage noted Hypoactive bowel sounds NG tube to low continuous suction MUSCULOSKELETAL: Extremities without clubbing, cyanosis, or edema. No obvious deformities. NEUROLOGICAL GCS 15. No gross focal/sensory deficits. Follows commands in all 4 extremities. A/P Assessment and Plan ASSESSMENT S/P mesenteric bypass POD #1 Anemia Cardiomyopathy Hyperlipidemia MAC Diabetes mellitus BPH Hypotension AK I-resolved Hypocalcemia PLAN Neurologic: Postop pain Currently RELATIONS MANAGER morphine 1 mg every 6 minutes on demand only. Patient has history of MAC Ofirmev 1 g every 6 hours x 24 hours Respiratory: Maintain O2 sat greater than 92% Continue incentive spirometry , every hour while awake currently inspiratory efforts yielded 500 cc. Continue to encourage use BiPAP at night, Have available at bedside Cardiovascular: Sinus rhythm intermittently bouts of tachycardia 90's -101 Maintain map greater than 65mmHg Renal: Maintain Mcdermott -- Strict I/Os FEN/GI: Maintenance fluid NS 84cc/hr NG tube to low continuous suction Electrolyte replacement per ICU protocol Nothing by mouth, with the exception of medications Calcium gluconate 2 g IV this a.m. Creatinine normal-1.3 Bowel regimen Heme/ID: Hemoglobin 7.8, will transfuse 2 units packed red blood cells this a.m. follow- up CBC Obtain cultures only if clinically indicated WBC downtrending Endocrine: Glucose monitoring per ICU protocol -- SSI Prophylaxis: GI Prophylaxis Protonix, Pepcid DVT Prophylaxis -- SCDs. Lovenox to be initiated on recommendations of vascular surgery Lines: Peripheral IVs providing adequate access at this time. Right radial Art line. Dispo: Level [address] Chau, patient and RAPID OUTSOLE STITCHER @ bedside Physician Eva Rowland MD Apr 11, 2017 07:53
[2017-04-11] MEDS: INSULIN ASPART SUPPLEMENTAL SCALE SQ SCH ×4 (08:00→20:26)
--- NOTE | 2017-04-11 08:07 | PD.VS.PN ---
Subjective POD #: 2 Procedure(s): mesenteric bypass Subjective/Hospital Course looks great and feels well was OOB TC yesterday no flatus abdominal pain controlled Objective Vitals/I&O Date Time Temp Pulse Resp B/P (MAP) Pulse Ox O2 Delivery O2 Flow Rate FiO2 04/11/17 06:48 20 04/11/17 06:00 20 04/11/17 04:00 103 04/11/17 04:00 98.8 103 20 134/59 (84) 94 143/46 (78) 04/11/17 00:00 104 04/11/17 00:00 98.6 109 20 136/57 (83) 98 146/43 (77) 04/10/17 22:00 20 04/10/17 21:23 95 Nasal Cannula 2.00 04/10/17 20:00 100 04/10/17 20:00 97.8 99 18 122/63 (82) 99 136/50 (78) 04/10/17 18:21 16 04/10/17 15:00 98.3 99 18 122/53 (76) 99 113/50 (71) 04/10/17 15:00 99 04/10/17 14:00 17 04/10/17 12:17 97 Nasal Cannula 2.00 04/10/17 11:00 98.8 98 18 102/59 (73) 99 117/46 (69) 04/10/17 11:00 96 04/11/17 04/11/17 04/11/17 07:00 15:00 23:00 Intake Total 1290 ml Output Total 800 ml Balance 490 ml Exam: alert, oriented neuro intact no SOB abdominal incision c/d/i and appropriately Laboratory Laboratory Tests Test 04/10/17 15:00 04/11/17 04:25 White Blood Count 16.6 17.6 Red Blood Count 2.70 2.40 Hemoglobin 7.6 6.8 Hematocrit 23.3 20.7 Mean Corpuscular Volume 86.2 86.1 Mean Corpuscular Hemoglobin 28.1 28.4 Mean Corpuscular Hemoglobin Concent 32.6 33.0 Red Cell Distribution Width 16.2 16.0 Platelet Count 168 165 Mean Platelet Volume 7.9 8.0 Blood Urea Nitrogen 32 28 Creatinine 2.22 1.39 Random Glucose 176 147 Calcium Level 7.5 7.4 Sodium Level 139 138 Potassium Level 4.2 4.2 Chloride Level 104 106 Carbon Dioxide Level 25.1 27.2 Anion Gap 10 5 Estimat Glomerular Filtration Rate 29 50 Total Protein 5.3 Phosphorus Level 3.3 Magnesium Level 2.0 Protein Corrected Calcium 8.4 Assessment and Plan Plan POD#2 s/p mesenteric bypass still volume avid as expected creatinine improved 1. Transfuse PRBC 2. D/C Mcdermott 3. OOB 4. AROBF and continue NGT Jose Chau MD Apr 11, 2017 08:07
[2017-04-11] MEDS ORDERED: CALCIUM GLUCONATE INJ 2 GM in SODIUM CHLORIDE 0.9% INJ 100 ML IV ONE (09:00)
[2017-04-11] MEDS: PANTOPRAZOLE SOD 40 MG DELAYED RELEASE TAB PO SCH (09:45)
[2017-04-11] MEDS: CHOLECALCIFEROL (VIT D3) 1000 UNIT TAB PO SCH (09:46)
[2017-04-11] MEDS: buPROPion HCL 150 MG SUSTAINED RELEASE TAB PO SCH ×2 (09:46→20:09)
[2017-04-11] MEDS: TAMSULOSIN HCL 0.4 MG CAP PO SCH ×2 (09:47→20:09)
[2017-04-11] MEDS: MULTIVITAMINS/MINERALS THERAPEUTIC TAB PO SCH (09:47)
[2017-04-11] MEDS: CARVEDILOL 6.25 MG TAB PO SCH ×2 (09:47→20:09)
[2017-04-11] MEDS: METOCLOPRAMIDE HCL 10 MG TAB PO SCH ×3 (09:47→17:30)
[2017-04-11] MEDS: ASPIRIN 81 MG CHEW TAB CHEW SCH (09:47)
[2017-04-11] MEDS: FINASTERIDE 5 MG TAB PO SCH (09:47)
[2017-04-11] MEDS: GLIMEPIRIDE 4 MG TAB PO SCH ×3 (09:47→20:26)
[2017-04-11] MEDS: FAMOTIDINE 20 MG TAB PO SCH (09:47)
[2017-04-11] MEDS: prednisoLONE ACETATE 1% OPHT SUSP 5 ML BTL EACH EYE SCH ×2 (09:48→20:21)
[2017-04-11] MEDS: ENOXAPARIN SODIUM 30 MG/0.3 ML SYRINGE SQ SCH (09:49)
[2017-04-11 15:34] LABS: HEMATOCRIT 22.8 % (39.0-51.0); MEAN CORPUSCULAR HEMOGLOBIN 28.4 PG (27.0-34.0); MEAN CORPUSCULAR HGB CONC 33.4 % (32.0-36.0); PLATELET COUNT 159 TH/MM3 (150-450); RED BLOOD COUNT 2.69 MIL/MM3 (4.50-5.90); RED CELL DISTRIBUTION WIDTH 16.5 % (11.6-17.2); REVIEW FLAG FINAL; WHITE BLOOD COUNT 17.2 TH/MM3 (4.0-11.0)
[2017-04-11] MEDS: FUROSEMIDE 20 MG TAB PO SCH (20:09)
[2017-04-11] MEDS: FENOFIBRATE 145 MG TAB PO SCH (20:09)
[2017-04-11] MEDS: LOSARTAN 50 MG TAB PO SCH (20:09)
[2017-04-11] MEDS: ATORVASTATIN 40 MG TAB PO SCH (20:09)
[2017-04-12] VITALS (8 sets, daily range): BP systolic 139–170; BP diastolic 41–78; PULSE 81–92; RESP 16–20; TEMP 98.2–99.4; O2SAT 90–96
[2017-04-12] MEDS: MORPHINE SULFATE 30 MG/30 ML PCA IV SCH ×2 (02:37→20:10)
[2017-04-12] MEDS: D5-1/2 NS + KCL 20 MEQ INJ 1,000 ML IV SCH ×3 (02:58→18:35)
[2017-04-12 05:14] LABS: HEMATOCRIT 21.3 % (39.0-51.0); MEAN CELL VOLUME 85.2 FL (80.0-100.0); MEAN CORPUSCULAR HEMOGLOBIN 28.8 PG (27.0-34.0); MEAN CORPUSCULAR HGB CONC 33.8 % (32.0-36.0); PLATELET COUNT 150 TH/MM3 (150-450); RED CELL DISTRIBUTION WIDTH 16.3 % (11.6-17.2); REVIEW FLAG FINAL; WHITE BLOOD COUNT 15.9 TH/MM3 (4.0-11.0)
[2017-04-12 05:44] LABS: BICARBONATE 30.2 MEQ/L (21.0-32.0)
[2017-04-12 05:56] LABS: CALCIUM-PROTEIN CORRECTED 8.4 MG/DL (8.5-10.1)
[2017-04-12] MEDS: PCA - TOTAL MG MORPHINE DELIVERED PER SHIFT SCH ×3 (06:00→22:00)
[2017-04-12] MEDS ORDERED: DEXTROSE 50% IN WATER 50 ML SYRINGE ONE ×2 (06:30→23:24)
--- NOTE | 2017-04-12 06:58 | HHI.CCPN ---
Subjective Remarks/Hospital Course This is a 71-year-old male who presented with chronic mesenteric ischemia and is S/P mesenteric bypass . Patient's history is significant for atherosclerosis with a history of [place] and has underwent a CABG in 1998 as well as endovascular angioplasties with right femoral stent placement in 2005, as well as carotid stenosis with left CEA. Upon evaluation for surgery the patient was noted to have a small 3.7 cm AAA. The patient underwent mesenteric bypass and received 5 L of crystalloid, 2 units of FFP, 2 units of packed red blood cells. Acute pain management currently is LAWN MOWER REPAIRER with morphine. The patient has a history of obstructive sleep apnea, upon evaluation the patient does not utilize his BiPAP machine regularly with current O2 sat ranging 94-95% . Currently systolic blood pressure high 80s to low 90 .Critical care medicine was consulted. Subjective: 04/10: Noted low urine output last evening. Patient bolus with 500 cc normal saline IV fluid maintenance increased. Patient out of bed and chair doing well. Pain well controlled. 04/11: Noted hemoglobin level 6.8 this morning. EKG noted to be sinus rhythm/ sinus tach 90's -100. Patient to be transfused 2 units packed red blood cells. Patient's pain well controlled with morphine LAWN MOWER REPAIRER. Patient utilize an incentive spirometry currently only 500 cc Encouraged to utilize during the day to increase volume. 04/12: The patient was transfused 2 units packed red blood cells yesterday, for hemoglobin 6.8 elevation 7.6. This a.m. patient's hemoglobin 7.2, heart rate still remains elevated 90s. Plan for transfusion 1 unit packed red blood cells followed by 10 units of Lasix IV. Patient encouraged to use incentive spirometry every hour while awake, and tin use low volumes at 500 cc per breath. Noted bowel sounds, hypoactive but with slight increase in frequency since yesterday. The patient's pain is adequately controlled. Objective Vital Signs Date Time Temp Pulse Resp B/P (MAP) Pulse Ox O2 Delivery O2 Flow Rate FiO2 04/12/17 06:00 18 04/12/17 03:00 91 Nasal Cannula 5.00 04/12/17 03:00 90 04/12/17 03:00 98.8 149/52 (84) 155/41 (79) Intake and Output 04/12/17 04/12/17 04/13/17 08:00 16:00 00:00 Intake Total 1327 ml Output Total 850 ml Balance 477 ml Result Diagram: 04/12/17 0450 04/12/17 0450 Imaging Last Impressions Chest X-Ray 04/09/17 0000 Signed Impressions: Service Date/Time: Sunday, April 09, 2017 14:04 - CONCLUSION: 1. Possible fracture of the right clavicle. Dedicated films of the clavicle would be of benefit for further assessment. 2. The lungs are clear. 3. No central venous catheter identified. Dionte Bush MD Objective Remarks GENERAL: Well-developed well-nourished male, lying in bed in no acute distress, sitting in chair. Heart rate in high 90s SKIN: Warm and dry. HEAD: Atraumatic. Normocephalic. EYES: Pupils equal and round. No scleral icterus. No injection or drainage. ENT: No nasal bleeding or discharge. Mucous membranes pink and moist. NECK: Trachea midline. No JVD. Well-healed left neck scar CARDIOVASCULAR: Normal rate, regular rhythm. RESPIRATORY: No accessory muscle use. Clear to auscultation. Breath sounds equal bilaterally. O2 saturation 95% on 3 L. incentive spirometry only 500 cc per breath GASTROINTESTINAL: Abdomen soft, non-tender, nondistended. Incision was Dermabond, no erythema drainage noted Hypoactive bowel sounds, but more frequent than previously noted NG tube to low continuous suction MUSCULOSKELETAL: Extremities without clubbing, cyanosis, or edema. No obvious deformities. NEUROLOGICAL GCS 15. No gross focal/sensory deficits. Follows commands in all 4 extremities. A/P Assessment and Plan ASSESSMENT S/P mesenteric bypass POD #3 Anemia Cardiomyopathy Hyperlipidemia MAC Diabetes mellitus BPH Hypotension AK I-resolved Hypocalcemia-resolved Hypoglycemia PLAN Neurologic: Postop pain-well controlled Currently LAWN MOWER REPAIRER morphine 1 mg every 6 minutes on demand only. Patient has history of MAC Respiratory: Maintain O2 sat greater than 92% Continue incentive spirometry , every hour while awake currently inspiratory efforts yielded 500 cc. Continue to encourage use BiPAP at night, Have available at bedside Cardiovascular: Sinus rhythm intermittently bouts of tachycardia 90's -101 Maintain MAP greater than 65mmHg Renal: Maintain Mcdermott -- Strict I/Os FEN/GI: Maintenance fluid NS 84cc/hr NG tube to low continuous suction Electrolyte replacement per ICU protocol Nothing by mouth, with the exception of medications Blood glucose level 58- D50 , given 0.5 Amp Creatinine normal-1.3 Bowel regimen Heme/ID: Hemoglobin 7.8, will transfuse 2 units packed red blood cells this a.m. follow- up CBC Obtain cultures only if clinically indicated WBC downtrending Endocrine: Glucose monitoring per ICU protocol -- SSI Prophylaxis: GI Prophylaxis Protonix, Pepcid DVT Prophylaxis -- SCDs. Lovenox to be initiated on recommendations of vascular surgery Lines: Peripheral IVs providing adequate access at this time. Right radial Art line. Dispo: Level 3 Discussed with patient and LEAD LOADER @ bedside. Plan transfusion of 1 unit this a.m. to be followed by 10 mg of Lasix. Encourage incentive spirometry use. Follow-up post transfusion CBC Physician Eva Rowland MD Apr 12, 2017 06:58
[2017-04-12] MEDS ORDERED: FUROSEMIDE 20 MG/2 ML VIAL IV PUSH ONE ×2 (07:00→10:00)
[2017-04-12] MEDS: INSULIN ASPART SUPPLEMENTAL SCALE SQ SCH ×4 (08:00→21:00)
--- NOTE | 2017-04-12 08:13 | PD.VS.PN ---
Subjective POD #: 3 Procedure(s): mesenteric bypass Subjective/Hospital Course feels good; no flatus abd appropriately tender Objective Vitals/I&O Date Time Temp Pulse Resp B/P (MAP) Pulse Ox O2 Delivery O2 Flow Rate FiO2 04/12/17 07:49 95 Nasal Cannula 4.00 04/12/17 06:00 18 04/12/17 03:00 91 Nasal Cannula 5.00 04/12/17 03:00 90 04/12/17 03:00 20 04/12/17 03:00 98.8 88 20 149/52 (84) 96 155/41 (79) 04/12/17 02:37 20 04/11/17 23:00 88 04/11/17 23:00 98.6 88 20 147/44 (78) 96 150/45 (80) 04/11/17 22:00 20 04/11/17 20:58 94 Nasal Cannula 4.00 04/11/17 20:40 18 04/11/17 19:00 100 04/11/17 19:00 98.1 100 18 144/63 (90) 93 148/70 (96) 04/11/17 15:00 96 04/11/17 15:00 98.0 96 20 143/74 (97) 97 158/51 (86) 04/11/17 14:00 20 04/11/17 13:15 98.7 102 20 142/59 93 04/11/17 12:45 98.7 103 20 149/63 93 04/11/17 12:30 98.4 106 20 151/64 90 04/11/17 12:15 98.7 106 20 155/69 95 04/11/17 12:00 98.7 107 20 155/64 95 04/11/17 11:46 98.4 108 20 151/64 94 04/11/17 11:00 111 04/11/17 11:00 98.7 108 20 152/66 (94) 92 167/49 (88) 04/12/17 04/12/17 04/12/17 07:00 15:00 23:00 Intake Total 1327 ml Output Total 850 ml Balance 477 ml Exam: abdomen incision c/d/i Laboratory Laboratory Tests Test 04/11/17 14:30 04/12/17 04:50 White Blood Count 17.2 15.9 Red Blood Count 2.69 2.50 Hemoglobin 7.6 7.2 Hematocrit 22.8 21.3 Mean Corpuscular Volume 85.0 85.2 Mean Corpuscular Hemoglobin 28.4 28.8 Mean Corpuscular Hemoglobin Concent 33.4 33.8 Red Cell Distribution Width 16.5 16.3 Platelet Count 159 150 Mean Platelet Volume 8.3 8.0 Blood Urea Nitrogen 15 Creatinine 0.60 Random Glucose 58 Total Protein 5.3 Calcium Level 7.4 Sodium Level 138 Potassium Level 4.0 Chloride Level 105 Carbon Dioxide Level 30.2 Anion Gap 3 Estimat Glomerular Filtration Rate 132 Protein Corrected Calcium 8.4 Assessment and Plan Plan POD#3 s/p mesenteric bypass creatinine improved 1. Transfuse PRBC 2. Diurese 3. D/C NGT 4. KVO IVF 5. [facility] Jose Chau MD Apr 12, 2017 08:13
[2017-04-12] MEDS: GLIMEPIRIDE 4 MG TAB PO SCH ×2 (09:00→21:00)
[2017-04-12] MEDS: ENOXAPARIN SODIUM 30 MG/0.3 ML SYRINGE SQ SCH (09:25)
[2017-04-12] MEDS: ASPIRIN 81 MG CHEW TAB CHEW SCH (09:26)
[2017-04-12] MEDS: MULTIVITAMINS/MINERALS THERAPEUTIC TAB PO SCH (09:26)
[2017-04-12] MEDS: FINASTERIDE 5 MG TAB PO SCH (09:26)
[2017-04-12] MEDS: CARVEDILOL 6.25 MG TAB PO SCH ×2 (09:26→20:28)
[2017-04-12] MEDS: buPROPion HCL 150 MG SUSTAINED RELEASE TAB PO SCH ×2 (09:26→20:28)
[2017-04-12] MEDS: prednisoLONE ACETATE 1% OPHT SUSP 5 ML BTL EACH EYE SCH ×2 (09:26→20:29)
[2017-04-12] MEDS: CHOLECALCIFEROL (VIT D3) 1000 UNIT TAB PO SCH (09:26)
[2017-04-12] MEDS: PANTOPRAZOLE SOD 40 MG DELAYED RELEASE TAB PO SCH (09:26)
[2017-04-12] MEDS: FAMOTIDINE 20 MG TAB PO SCH (09:26)
[2017-04-12] MEDS: TAMSULOSIN HCL 0.4 MG CAP PO SCH ×2 (09:26→20:40)
[2017-04-12] MEDS: METOCLOPRAMIDE HCL 10 MG TAB PO SCH ×2 (09:28→18:13)
[2017-04-12] MEDS ORDERED: DEXTROSE 10% INJ 1,000 ML IV SCH (17:45)
[2017-04-12] MEDS: LOSARTAN 50 MG TAB PO SCH (20:28)
[2017-04-12] MEDS: FENOFIBRATE 145 MG TAB PO SCH (20:28)
[2017-04-12] MEDS: ATORVASTATIN 40 MG TAB PO SCH (20:28)
[2017-04-12] MEDS: FUROSEMIDE 20 MG TAB PO SCH (20:29)
[2017-04-13] VITALS (7 sets, daily range): BP systolic 127–160; BP diastolic 47–69; PULSE 81–113; RESP 17–20; TEMP 98.7–99.6; O2SAT 90–98
[2017-04-13] MEDS: PCA - TOTAL MG MORPHINE DELIVERED PER SHIFT SCH (05:00)
[2017-04-13 05:21] LABS: HEMATOCRIT 27.6 % (39.0-51.0); MEAN CELL VOLUME 85.1 FL (80.0-100.0); MEAN CORPUSCULAR HEMOGLOBIN 27.9 PG (27.0-34.0); MEAN CORPUSCULAR HGB CONC 32.7 % (32.0-36.0); PLATELET COUNT 197 TH/MM3 (150-450); RED BLOOD COUNT 3.25 MIL/MM3 (4.50-5.90); RED CELL DISTRIBUTION WIDTH 15.7 % (11.6-17.2); REVIEW FLAG FINAL; WHITE BLOOD COUNT 12.4 TH/MM3 (4.0-11.0)
[2017-04-13 05:41] LABS: BICARBONATE 30.9 MEQ/L (21.0-32.0); POTASSIUM 3.4 MEQ/L (3.5-5.1)
[2017-04-13 05:45] LABS: INDIRECT BILIRUBIN 0.6 MG/DL (0.0-0.8); TOTAL BILIRUBIN ADULT 0.9 MG/DL (0.2-1.0)
[2017-04-13] MEDS: D5-1/2 NS + KCL 20 MEQ INJ 1,000 ML IV SCH ×2 (06:30→08:51)
[2017-04-13] MEDS: METOCLOPRAMIDE HCL 10 MG/2 ML VIAL IV PUSH SCH ×2 (08:00→11:48)
[2017-04-13] MEDS: INSULIN ASPART SUPPLEMENTAL SCALE SQ SCH ×4 (08:00→21:00)
[2017-04-13] MEDS: buPROPion HCL 150 MG SUSTAINED RELEASE TAB PO SCH ×2 (08:09→21:35)
[2017-04-13] MEDS: prednisoLONE ACETATE 1% OPHT SUSP 5 ML BTL EACH EYE SCH ×2 (08:09→21:00)
[2017-04-13] MEDS: MULTIVITAMINS/MINERALS THERAPEUTIC TAB PO SCH (08:10)
[2017-04-13] MEDS: TAMSULOSIN HCL 0.4 MG CAP PO SCH ×2 (08:10→21:35)
[2017-04-13] MEDS: CHOLECALCIFEROL (VIT D3) 1000 UNIT TAB PO SCH (08:10)
[2017-04-13] MEDS: GLIMEPIRIDE 4 MG TAB PO SCH ×2 (08:10→21:00)
[2017-04-13] MEDS: PANTOPRAZOLE SOD 40 MG DELAYED RELEASE TAB PO SCH (08:10)
[2017-04-13] MEDS: CARVEDILOL 6.25 MG TAB PO SCH ×2 (08:10→21:35)
[2017-04-13] MEDS: ASPIRIN 81 MG CHEW TAB CHEW SCH (08:10)
--- NOTE | 2017-04-13 08:10 | HHI.CCPN ---
Subjective Remarks/Hospital Course This is a 71-year-old male who presented with chronic mesenteric ischemia and is S/P mesenteric bypass . Patient's history is significant for atherosclerosis with a history of [place] and has underwent a CABG in 1998 as well as endovascular angioplasties with right femoral stent placement in 2005, as well as carotid stenosis with left CEA. Upon evaluation for surgery the patient was noted to have a small 3.7 cm AAA. The patient underwent mesenteric bypass and received 5 L of crystalloid, 2 units of FFP, 2 units of packed red blood cells. Acute pain management currently is DISTRIBUTOR CLEANER with morphine. The patient has a history of obstructive sleep apnea, upon evaluation the patient does not utilize his BiPAP machine regularly with current O2 sat ranging 94-95% . Currently systolic blood pressure high 80s to low 90 .Critical care medicine was consulted. Subjective: 04/10: Noted low urine output last evening. Patient bolus with 500 cc normal saline IV fluid maintenance increased. Patient out of bed and chair doing well. Pain well controlled. 04/11: Noted hemoglobin level 6.8 this morning. EKG noted to be sinus rhythm/ sinus tach 90's -100. Patient to be transfused 2 units packed red blood cells. Patient's pain well controlled with morphine DISTRIBUTOR CLEANER. Patient utilize an incentive spirometry currently only 500 cc Encouraged to utilize during the day to increase volume. 04/12: The patient was transfused 2 units packed red blood cells yesterday, for hemoglobin 6.8 elevation 7.6. This a.m. patient's hemoglobin 7.2, heart rate still remains elevated 90s. Plan for transfusion 1 unit packed red blood cells followed by 10 units of Lasix IV. Patient encouraged to use incentive spirometry every hour while awake, and tin use low volumes at 500 cc per breath. Noted bowel sounds, hypoactive but with slight increase in frequency since yesterday. The patient's pain is adequately controlled. 04/13: Hemoglobin stable . The patient was noted in the last 24 hours to have hypoglycemia, 2 hour glucose monitoring was initiated last evening, with D10 infusion at 30 cc/hour. LFTs were obtained this morning, within normal limits. The patient was provided small sips of water last evening, and tolerated it well post removal of NGT. Patient placed on ice chips with sips of water this a.m.. Patient awake most of the night, now ready to retire early this a.m. to bed. Encourage patient to maintain sleep-wake cycle, provided melatonin, PRN for insomnia. Objective Vital Signs Date Time Temp Pulse Resp B/P (MAP) Pulse Ox O2 Delivery O2 Flow Rate FiO2 04/13/17 07:22 84 04/13/17 07:22 98.7 17 127/60 (82) 98 04/13/17 07:19 Nasal Cannula 4.00 Intake and Output 04/13/17 04/13/17 04/14/17 08:00 16:00 00:00 Intake Total 1876 ml Output Total 550 ml Balance 1326 ml Result Diagram: 04/13/17 0455 04/13/17 0455 Imaging Last Impressions Chest X-Ray 04/09/17 0000 Signed Impressions: Service Date/Time: Sunday, April 09, 2017 14:04 - CONCLUSION: 1. Possible fracture of the right clavicle. Dedicated films of the clavicle would be of benefit for further assessment. 2. The lungs are clear. 3. No central venous catheter identified. Dionte Bush MD Objective Remarks GENERAL: Well-developed well-nourished male, sitting up in chair, lethargic but easily arousable SKIN: Warm and dry. HEAD: Atraumatic. Normocephalic. EYES: Pupils equal and round. No scleral icterus. No injection or drainage. ENT: No nasal bleeding or discharge. Mucous membranes pink and moist. NECK: Trachea midline. No JVD. Well-healed left neck scar CARDIOVASCULAR: Normal rate, regular rhythm. RESPIRATORY: No accessory muscle use. Clear to auscultation. Breath sounds equal bilaterally. O2 saturation 95% on 3 L. incentive spirometry continues at 500 cc per breath GASTROINTESTINAL: Abdomen soft, non-tender, nondistended. Incision was Dermabond, no erythema drainage noted Hypoactive bowel sounds. MUSCULOSKELETAL: Extremities without clubbing, cyanosis, or edema. No obvious deformities. NEUROLOGICAL GCS 15. No gross focal/sensory deficits. Follows commands in all 4 extremities. A/P Assessment and Plan ASSESSMENT S/P mesenteric bypass POD #4 Anemia Cardiomyopathy Hyperlipidemia MAC Diabetes mellitus BPH Hypotension AK I-resolved Hypocalcemia-resolved Hypoglycemia PLAN Neurologic: Postop pain-well controlled Currently DISTRIBUTOR CLEANER morphine 1 mg every 6 minutes on demand only. Patient has history of MAC Recommend consider discontinuation of Morphine DISTRIBUTOR CLEANER and begin PO narcotics with decreased frequency, and IV Morphine for breakthrough pain Melatonin 5 mg q HS PRN for insomnia-maintain sleep hygiene, for avoidance of ICU delirium Respiratory: Maintain O2 sat greater than 92%. O2 currently at 3 L via nasal cannula, continue to wean Continue incentive spirometry , every hour while awake currently inspiratory efforts yielded 500 cc. Continue to encourage use BiPAP at night, Have available at bedside Cardiovascular: Telemetry- Sinus rhythm Maintain MAP greater than 65mmHg Renal: Maintain Mcdermott -- Strict I/Os FEN/GI: Patient currently on D10 at 30cc/hr, last 12 hours blood glucose levels 90-153 . Will change to D51/2 NS at 50cc/hr Initially concern for possible hepatic insult, AST 343-> 31,ALT 237->66, normal. We'll continue to monitor Continue glucose monitoring every 4 hours NGT -discontinued 04/12 Electrolyte replacement per ICU protocol Begin ice chips with sips, and tolerated begin clear liquid diet this afternoon Add Reglan 5 mg every 8 hours to medication regimen Bowel regimen-add Colace 100 mg twice a day Heme/ID: Hemoglobin stable 7.8-9.0 today,S/P 1 u PRBC on 04/12 Obtain cultures only if clinically indicated Monitor CBC Endocrine: Glucose monitoring every 4 hours -- SSI Prophylaxis: GI Prophylaxis Protonix, Pepcid DVT Prophylaxis -- SCDs. Lovenox Lines: Peripheral IVs providing adequate access at this time. Right radial Art line. Dispo: Level 3 Patient was provided small sips of water throughout the night tolerated well. Will plan for ice chips and sips this morning, and assess tolerance. Reglan and Colace added to GI medication regimen, and recommendation for decreasing frequency of narcotics for enhancement of GI motility. Discussed with BUSINESS DEVELOPMENT REPRESENTATIVE at bedside. Physician Eva Rowland MD Apr 13, 2017 08:10
[2017-04-13] MEDS: FAMOTIDINE 20 MG TAB PO SCH (08:11)
[2017-04-13] MEDS: METOCLOPRAMIDE HCL 10 MG TAB PO SCH ×3 (08:11→17:03)
[2017-04-13] MEDS: FINASTERIDE 5 MG TAB PO SCH (08:11)
[2017-04-13] MEDS: DOCUSATE SODIUM 100 MG CAP PO SCH ×2 (08:11→21:35)
[2017-04-13] MEDS: ENOXAPARIN SODIUM 30 MG/0.3 ML SYRINGE SQ SCH (10:09)
[2017-04-13] MEDS ORDERED: MORPHINE SULFATE 4 MG/ML INJ IV PRN (10:30)
--- NOTE | 2017-04-13 10:34 | PD.VS.PN ---
Subjective POD #: 4 Procedure(s): mesenteric bypass Subjective/Hospital Course pain controlled no nausea since NGT out overall looks great Objective Vitals/I&O Date Time Temp Pulse Resp B/P (MAP) Pulse Ox O2 Delivery O2 Flow Rate FiO2 04/13/17 09:52 95 Nasal Cannula 2.00 04/13/17 07:22 84 04/13/17 07:22 98.7 84 17 127/60 (82) 98 04/13/17 07:19 98 Nasal Cannula 4.00 04/13/17 05:00 18 04/13/17 03:00 85 04/13/17 03:00 98 Nasal Cannula 5.00 04/13/17 03:00 98.8 81 20 160/57 (91) 98 04/12/17 23:00 92 Nasal Cannula 5.00 04/12/17 23:00 81 04/12/17 23:00 98.4 81 20 144/66 (92) 92 04/12/17 22:00 18 04/12/17 21:41 95 Nasal Cannula 5.00 04/12/17 20:15 18 04/12/17 20:10 18 04/12/17 19:00 98.9 90 18 170/71 (104) 90 Arterial Line 04/12/17 19:00 90 Nasal Cannula 5.00 04/12/17 19:00 90 04/12/17 15:00 87 04/12/17 15:00 95 Nasal Cannula 5.00 04/12/17 15:00 98.2 87 16 139/64 (89) 95 04/12/17 14:00 16 04/12/17 11:00 90 Nasal Cannula 5.00 04/12/17 11:00 81 04/12/17 11:00 99.4 81 16 143/64 (90) 90 04/13/17 04/13/17 04/13/17 07:00 15:00 23:00 Intake Total 1876 ml Output Total 550 ml Balance 1326 ml Exam: incision c/d/i minimal abdominal tenderness Laboratory Laboratory Tests Test 04/13/17 04:55 White Blood Count 12.4 Red Blood Count 3.25 Hemoglobin 9.0 Hematocrit 27.6 Mean Corpuscular Volume 85.1 Mean Corpuscular Hemoglobin 27.9 Mean Corpuscular Hemoglobin Concent 32.7 Red Cell Distribution Width 15.7 Platelet Count 197 Mean Platelet Volume 7.8 Blood Urea Nitrogen 10 Creatinine 0.68 Random Glucose 153 Calcium Level 7.9 Sodium Level 136 Potassium Level 3.4 Chloride Level 100 Carbon Dioxide Level 30.9 Anion Gap 5 Estimat Glomerular Filtration Rate 115 Total Bilirubin 0.9 Direct Bilirubin 0.3 Indirect Bilirubin 0.6 Aspartate Amino Transf (AST/SGOT) 31 Alanine Aminotransferase (ALT/SGPT) 66 Alkaline Phosphatase 64 Total Protein 5.6 Albumin 2.0 Assessment and Plan Plan POD#4 s/p mesenteric bypass creatinine normal Hct 28 LFTs normal 1. clear liquids 2. HL IVF 3. D/C RACETRACK STEWARD and transition to po pain meds Jose Chau MD Apr 13, 2017 10:34
[2017-04-13] MEDS ORDERED: MELATONIN 5 MG TAB PO PRN (21:00)
[2017-04-13] MEDS: FUROSEMIDE 20 MG TAB PO SCH (21:35)
[2017-04-13] MEDS: LOSARTAN 50 MG TAB PO SCH (21:35)
[2017-04-13] MEDS: FENOFIBRATE 145 MG TAB PO SCH (21:35)
[2017-04-13] MEDS: ATORVASTATIN 40 MG TAB PO SCH (21:36)
[2017-04-13] MEDS ORDERED: POTASSIUM CHLOR 20 MEQ PREMIX 100 ML IV ONE (23:15)
[2017-04-13 23:53] LABS: AUTOMATED NEUTROPHIL # 8.4 TH/MM3 (1.8-7.7); BASOPHIL % 0.1 % (0.0-2.0); EOSINOPHIL # 0.1 TH/MM3 (0-0.4); EOSINOPHIL % 0.5 % (0.0-4.0); HEMATOCRIT 24.3 % (39.0-51.0); HEMO FLAGS DIFF FINAL; LYMPH % 5.4 % (9.0-44.0); LYMPHOCYTE # 0.5 TH/MM3 (1.0-4.8); MEAN CELL VOLUME 84.9 FL (80.0-100.0); MEAN CORPUSCULAR HEMOGLOBIN 28.6 PG (27.0-34.0); MEAN CORPUSCULAR HGB CONC 33.7 % (32.0-36.0); MONO % 9.4 % (0.0-8.0); NEUT % 84.6 % (16.0-70.0); PLATELET COUNT 201 TH/MM3 (150-450); RED BLOOD COUNT 2.86 MIL/MM3 (4.50-5.90); RED CELL DISTRIBUTION WIDTH 15.6 % (11.6-17.2); WHITE BLOOD COUNT 9.9 TH/MM3 (4.0-11.0)
[2017-04-14] VITALS (11 sets, daily range): BP systolic 132–178; BP diastolic 60–74; PULSE 83–99; RESP 18; TEMP 97.9–98.9; O2SAT 65–95
[2017-04-14 00:05] LABS: BICARBONATE 29.7 MEQ/L (21.0-32.0); MAGNESIUM 1.9 MG/DL (1.5-2.5); POTASSIUM 3.2 MEQ/L (3.5-5.1)
[2017-04-14] MEDS ORDERED: POTASSIUM CHLOR 20 MEQ PREMIX 100 ML IV ONE (03:15)
[2017-04-14] MEDS ORDERED: POTASSIUM CHLORIDE 20 MEQ CONTROLLED RELEASE TAB PO ONE (03:15)
[2017-04-14] MEDS: HYDROmorphone HCL 2 MG TAB PO PRN ×3 (06:40→21:08)
--- NOTE | 2017-04-14 07:58 | PD.VS.PN ---
Subjective Procedure(s): mesenteric bypass Subjective/Hospital Course Roman liquids. No nausea/emesis. Getting ready to have BM now. Objective Vitals/I&O Date Time Temp Pulse Resp B/P (MAP) Pulse Ox O2 Delivery O2 Flow Rate FiO2 04/14/17 07:32 95 Nasal Cannula 2.00 04/14/17 07:30 17 04/14/17 07:24 95 Nasal Cannula 2.00 04/14/17 07:23 86 04/14/17 07:22 97.9 86 18 149/64 (92) 94 04/14/17 03:00 92 04/14/17 03:00 98.6 94 18 132/60 (84) 65 04/14/17 03:00 95 Nasal Cannula 2.00 04/13/17 23:34 18 04/13/17 23:34 18 04/13/17 23:00 98.7 106 18 145/69 (94) 90 04/13/17 23:00 91 Nasal Cannula 2.00 04/13/17 23:00 93 04/13/17 19:00 90 Nasal Cannula 4.00 04/13/17 19:00 98.7 112 18 148/69 (95) 90 04/13/17 19:00 107 04/13/17 15:07 113 04/13/17 15:07 99.5 113 17 127/47 (73) 90 04/13/17 15:06 90 Nasal Cannula 2.00 04/13/17 11:03 99.6 101 17 131/59 (83) 90 04/13/17 11:03 101 04/13/17 11:02 90 Nasal Cannula 2.00 04/13/17 09:52 95 Nasal Cannula 2.00 04/14/17 04/14/17 04/14/17 07:00 15:00 23:00 Intake Total 1000 ml Output Total 700 ml Balance 300 ml Exam: incision intact and abdomen not distended. Laboratory Laboratory Tests Test 04/13/17 23:20 White Blood Count 9.9 Red Blood Count 2.86 Hemoglobin 8.2 Hematocrit 24.3 Mean Corpuscular Volume 84.9 Mean Corpuscular Hemoglobin 28.6 Mean Corpuscular Hemoglobin Concent 33.7 Red Cell Distribution Width 15.6 Platelet Count 201 Mean Platelet Volume 7.8 Neutrophils (%) (Auto) 84.6 Lymphocytes (%) (Auto) 5.4 Monocytes (%) (Auto) 9.4 Eosinophils (%) (Auto) 0.5 Basophils (%) (Auto) 0.1 Neutrophils # (Auto) 8.4 Lymphocytes # (Auto) 0.5 Monocytes # (Auto) 0.9 Eosinophils # (Auto) 0.1 Basophils # (Auto) 0.0 CBC Comment DIFF FINAL Differential Comment Blood Urea Nitrogen 11 Creatinine 0.56 Random Glucose 77 Calcium Level 8.0 Magnesium Level 1.9 Sodium Level 138 Potassium Level 3.2 Chloride Level 101 Carbon Dioxide Level 29.7 Anion Gap 7 Estimat Glomerular Filtration Rate 143 Assessment and Plan Plan POD#4 s/p mesenteric bypass Advance to full liquids. transfer to [facility] on saturday. Nathanael Nunez DO, Nathanael Simms DO Apr 14, 2017 07:58
[2017-04-14] MEDS: INSULIN ASPART SUPPLEMENTAL SCALE SQ SCH ×4 (08:00→21:00)
[2017-04-14] MEDS: METOCLOPRAMIDE HCL 10 MG TAB PO SCH ×3 (08:09→17:00)
[2017-04-14] MEDS: CARVEDILOL 6.25 MG TAB PO SCH ×2 (08:52→21:07)
[2017-04-14] MEDS: DOCUSATE SODIUM 100 MG CAP PO SCH ×2 (08:52→21:00)
[2017-04-14] MEDS: prednisoLONE ACETATE 1% OPHT SUSP 5 ML BTL EACH EYE SCH ×2 (08:52→21:00)
[2017-04-14] MEDS: GLIMEPIRIDE 4 MG TAB PO SCH (08:52)
[2017-04-14] MEDS: buPROPion HCL 150 MG SUSTAINED RELEASE TAB PO SCH ×2 (08:52→21:07)
[2017-04-14] MEDS: CHOLECALCIFEROL (VIT D3) 1000 UNIT TAB PO SCH (08:52)
[2017-04-14] MEDS: ASPIRIN 81 MG CHEW TAB CHEW SCH (08:52)
[2017-04-14] MEDS: FINASTERIDE 5 MG TAB PO SCH (08:52)
[2017-04-14] MEDS: PANTOPRAZOLE SOD 40 MG DELAYED RELEASE TAB PO SCH (08:54)
[2017-04-14] MEDS: TAMSULOSIN HCL 0.4 MG CAP PO SCH ×2 (08:54→21:07)
[2017-04-14] MEDS: MULTIVITAMINS/MINERALS THERAPEUTIC TAB PO SCH (08:54)
[2017-04-14] MEDS: FAMOTIDINE 20 MG TAB PO SCH (09:13)
[2017-04-14 10:03] LABS: HEMATOCRIT 28.5 % (39.0-51.0); MEAN CELL VOLUME 86.2 FL (80.0-100.0); MEAN CORPUSCULAR HEMOGLOBIN 28.2 PG (27.0-34.0); MEAN CORPUSCULAR HGB CONC 32.7 % (32.0-36.0); PLATELET COUNT 252 TH/MM3 (150-450); RED BLOOD COUNT 3.31 MIL/MM3 (4.50-5.90); RED CELL DISTRIBUTION WIDTH 15.9 % (11.6-17.2); REVIEW FLAG FINAL; WHITE BLOOD COUNT 11.6 TH/MM3 (4.0-11.0)
[2017-04-14] MEDS: ENOXAPARIN SODIUM 30 MG/0.3 ML SYRINGE SQ SCH (10:04)
[2017-04-14 10:28] LABS: BICARBONATE 28.5 MEQ/L (21.0-32.0); INDIRECT BILIRUBIN 0.6 MG/DL (0.0-0.8); POTASSIUM 3.7 MEQ/L (3.5-5.1)
--- NOTE | 2017-04-14 10:46 | HHI.CCPN ---
Subjective Remarks/Hospital Course This is a 71-year-old male who presented with chronic mesenteric ischemia and is S/P mesenteric bypass . Patient's history is significant for atherosclerosis with a history of [place] and has underwent a CABG in 1998 as well as endovascular angioplasties with right femoral stent placement in 2005, as well as carotid stenosis with left CEA. Upon evaluation for surgery the patient was noted to have a small 3.7 cm AAA. The patient underwent mesenteric bypass and received 5 L of crystalloid, 2 units of FFP, 2 units of packed red blood cells. Acute pain management currently is ONBOARDING SPECIALIST with morphine. The patient has a history of obstructive sleep apnea, upon evaluation the patient does not utilize his BiPAP machine regularly with current O2 sat ranging 94-95% . Currently systolic blood pressure high 80s to low 90 .Critical care medicine was consulted. Subjective: 04/10: Noted low urine output last evening. Patient bolus with 500 cc normal saline IV fluid maintenance increased. Patient out of bed and chair doing well. Pain well controlled. 04/11: Noted hemoglobin level 6.8 this morning. EKG noted to be sinus rhythm/ sinus tach 90's -100. Patient to be transfused 2 units packed red blood cells. Patient's pain well controlled with morphine ONBOARDING SPECIALIST. Patient utilize an incentive spirometry currently only 500 cc Encouraged to utilize during the day to increase volume. 04/12: The patient was transfused 2 units packed red blood cells yesterday, for hemoglobin 6.8 elevation 7.6. This a.m. patient's hemoglobin 7.2, heart rate still remains elevated 90s. Plan for transfusion 1 unit packed red blood cells followed by 10 units of Lasix IV. Patient encouraged to use incentive spirometry every hour while awake, and tin use low volumes at 500 cc per breath. Noted bowel sounds, hypoactive but with slight increase in frequency since yesterday. The patient's pain is adequately controlled. 04/13: Hemoglobin stable . The patient was noted in the last 24 hours to have hypoglycemia, 2 hour glucose monitoring was initiated last evening, with D10 infusion at 30 cc/hour. LFTs were obtained this morning, within normal limits. The patient was provided small sips of water last evening, and tolerated it well post removal of NGT. Patient placed on ice chips with sips of water this a.m.. Patient awake most of the night, now ready to retire early this a.m. to bed. Encourage patient to maintain sleep-wake cycle, provided melatonin, PRN for insomnia. 04/14: Afebrile. Patient tolerating clear liquid diet last 24 hours, diet advance to regular diet. Amaryl placed on hold, so patient can consume 50% of a regular diet.-Ambulating around the room now bowel sounds active, expelling flatus. Patient encouraged still to use incentive spirometry still O2 dependent on 2 L/m nasal cannula. Pain well controlled. Objective Vital Signs Date Time Temp Pulse Resp B/P (MAP) Pulse Ox O2 Delivery O2 Flow Rate FiO2 04/14/17 07:32 95 Nasal Cannula 2.00 04/14/17 07:30 17 04/14/17 07:23 86 04/14/17 07:22 97.9 149/64 (92) Intake and Output 04/14/17 04/14/17 04/15/17 08:00 16:00 00:00 Intake Total 1000 ml Output Total 700 ml Balance 300 ml Result Diagram: 04/14/17 0944 04/14/17 0944 Imaging Last Impressions Chest X-Ray 04/09/17 0000 Signed Impressions: Service Date/Time: Sunday, April 09, 2017 14:04 - CONCLUSION: 1. Possible fracture of the right clavicle. Dedicated films of the clavicle would be of benefit for further assessment. 2. The lungs are clear. 3. No central venous catheter identified. Dionte Bush MD Objective Remarks GENERAL: Well-developed well-nourished male, sitting up in chair, alert and pleasantly conversant SKIN: Warm and dry. HEAD: Atraumatic. Normocephalic. EYES: Pupils equal and round. No scleral icterus. No injection or drainage. ENT: No nasal bleeding or discharge. Mucous membranes pink and moist. NECK: Trachea midline. No JVD. Well-healed left neck scar CARDIOVASCULAR: Normal rate, regular rhythm. RESPIRATORY: No accessory muscle use. Clear to auscultation. Breath sounds equal bilaterally. O2 saturation 95% on 3 L. incentive spirometry continues at 500 cc per breath GASTROINTESTINAL: Abdomen soft, non-tender, nondistended. Incision was Dermabond, no erythema drainage noted .Active bowel sounds. MUSCULOSKELETAL: Extremities without clubbing, cyanosis, or edema. No obvious deformities. NEUROLOGICAL GCS 15. No gross focal/sensory deficits. Follows commands in all 4 extremities. A/P Assessment and Plan ASSESSMENT S/P mesenteric bypass POD #4 Anemia Cardiomyopathy Hyperlipidemia MAC Diabetes mellitus BPH Hypotension AK I-resolved Hypocalcemia-resolved Hypoglycemia PLAN Neurologic: Postop pain-well controlled IV Morphine for breakthrough pain Melatonin 5 mg q HS PRN for insomnia-maintain sleep hygiene, for avoidance of ICU delirium Respiratory: Maintain O2 sat greater than 92%. O2 currently at 3 L via nasal cannula, continue to wean Continue incentive spirometry , every hour while awake currently inspiratory efforts yielded 500 cc. Continue to encourage use BiPAP at night, Have available at bedside Cardiovascular: Telemetry- Sinus rhythm Maintain MAP greater than 65mmHg Renal: Maintain Mcdermott -- Strict I/Os FEN/GI: Clear liquid diet initiated yesterday plans for regular diet today. Amaryl placed on hold will resume Amaryl tomorrow if patient is able to tolerate 50% a regular diet Continue glucose monitoring every 4 hours NGT -discontinued 04/12 Electrolyte replacement per ICU protocol Reglan 5 mg every 8 hours to medication regimen Bowel regimen-Colace 100 mg twice a day Heme/ID: Hemoglobin stable 9.3 Obtain cultures only if clinically indicated Monitor CBC Endocrine: Glucose monitoring every 4 hours. Amaryl placed on hold until patient is able to consume regular diet. So low dose sliding scale insulin regimen if needed -- SSI Prophylaxis: GI Prophylaxis Protonix, Pepcid DVT Prophylaxis -- SCDs. Lovenox Lines: Peripheral IVs providing adequate access at this time. Dispo: Level 3 Discussed with GOAT FARMER at bedside. Patient progressing well. Patient encouraged to utilize incentive spirometry, still O2 dependent. Oral hypoglycemics on placed on hold, until patient can consume 50% of her regular diet. Thank you for allowing me to participate in caring for this patient Critical Care medicine will sign off. Physician Eva Rowland MD Apr 14, 2017 10:46
[2017-04-14] MEDS: ATORVASTATIN 40 MG TAB PO SCH (21:07)
[2017-04-14] MEDS: LOSARTAN 50 MG TAB PO SCH (21:07)
[2017-04-14] MEDS: FENOFIBRATE 145 MG TAB PO SCH (21:07)
[2017-04-15] VITALS (16 sets, daily range): BP systolic 158–194; BP diastolic 67–86; PULSE 84–93; RESP 16–20; TEMP 98.1–99.3; O2SAT 92–96
[2017-04-15] MEDS: HYDROmorphone HCL 2 MG TAB PO PRN (06:36)
[2017-04-15 07:10] LABS: AUTOMATED NEUTROPHIL # 9.1 TH/MM3 (1.8-7.7); BASOPHIL % 0.1 % (0.0-2.0); EOSINOPHIL # 0.1 TH/MM3 (0-0.4); EOSINOPHIL % 0.7 % (0.0-4.0); HEMATOCRIT 27.2 % (39.0-51.0); HEMO FLAGS DIFF FINAL; LYMPH % 5.2 % (9.0-44.0); LYMPHOCYTE # 0.6 TH/MM3 (1.0-4.8); MEAN CELL VOLUME 85.7 FL (80.0-100.0); MEAN CORPUSCULAR HEMOGLOBIN 28.8 PG (27.0-34.0); MEAN CORPUSCULAR HGB CONC 33.6 % (32.0-36.0); MONO % 10.6 % (0.0-8.0); NEUT % 83.4 % (16.0-70.0); PLATELET COUNT 266 TH/MM3 (150-450); RED BLOOD COUNT 3.18 MIL/MM3 (4.50-5.90); RED CELL DISTRIBUTION WIDTH 15.3 % (11.6-17.2); WHITE BLOOD COUNT 10.9 TH/MM3 (4.0-11.0)
[2017-04-15 07:48] LABS: POTASSIUM 4.2 MEQ/L (3.5-5.1)
[2017-04-15] MEDS: INSULIN ASPART SUPPLEMENTAL SCALE SQ SCH ×4 (08:00→21:00)
[2017-04-15] MEDS: FAMOTIDINE 20 MG TAB PO SCH (08:22)
[2017-04-15] MEDS: TAMSULOSIN HCL 0.4 MG CAP PO SCH ×2 (08:22→20:56)
[2017-04-15] MEDS: MULTIVITAMINS/MINERALS THERAPEUTIC TAB PO SCH (08:22)
[2017-04-15] MEDS: ENOXAPARIN SODIUM 30 MG/0.3 ML SYRINGE SQ SCH (08:22)
[2017-04-15] MEDS: FINASTERIDE 5 MG TAB PO SCH (08:22)
[2017-04-15] MEDS: PANTOPRAZOLE SOD 40 MG DELAYED RELEASE TAB PO SCH (08:22)
[2017-04-15] MEDS: METOCLOPRAMIDE HCL 10 MG TAB PO SCH ×3 (08:22→18:22)
[2017-04-15] MEDS: CHOLECALCIFEROL (VIT D3) 1000 UNIT TAB PO SCH (08:22)
[2017-04-15] MEDS: buPROPion HCL 150 MG SUSTAINED RELEASE TAB PO SCH ×2 (08:22→20:56)
[2017-04-15] MEDS: ASPIRIN 81 MG CHEW TAB CHEW SCH (08:23)
[2017-04-15] MEDS: DOCUSATE SODIUM 100 MG CAP PO SCH ×2 (08:23→20:55)
[2017-04-15] MEDS: prednisoLONE ACETATE 1% OPHT SUSP 5 ML BTL EACH EYE SCH ×2 (08:23→20:57)
[2017-04-15] MEDS: CARVEDILOL 6.25 MG TAB PO SCH ×2 (08:23→20:56)
[2017-04-15] MEDS: GLIMEPIRIDE 4 MG TAB PO SCH ×3 (08:52→21:58)
[2017-04-15] MEDS: FUROSEMIDE 20 MG TAB PO SCH (08:52)
--- NOTE | 2017-04-15 09:30 | PD.VS.PN ---
Subjective POD #: 6 Procedure(s): mesenteric bypass Subjective/Hospital Course Roman full liquids no abdominal pain Objective Vitals/I&O Date Time Temp Pulse Resp B/P (MAP) Pulse Ox O2 Delivery O2 Flow Rate FiO2 04/15/17 07:43 98.2 84 18 163/76 (105) 92 04/15/17 07:42 92 Nasal Cannula 2.00 04/15/17 07:00 89 04/15/17 03:00 92 Nasal Cannula 3.00 04/15/17 03:00 87 04/15/17 03:00 98.4 86 18 160/76 (104) 92 04/14/17 23:00 87 04/14/17 23:00 92 Nasal Cannula 3.00 04/14/17 23:00 98.5 83 18 163/74 (103) 92 04/14/17 22:30 94 Nasal Cannula 2.00 04/14/17 19:00 99 04/14/17 19:00 91 Nasal Cannula 3.00 04/14/17 19:00 98.9 84 18 161/72 (101) 91 04/14/17 17:08 18 04/14/17 15:02 87 04/14/17 15:02 95 Nasal Cannula 2.00 04/14/17 15:01 98.2 87 18 178/71 (106) 89 04/14/17 11:03 98.6 87 18 155/67 (96) 89 04/14/17 11:02 89 Room Air 04/14/17 11:02 87 04/15/17 04/15/17 04/15/17 07:00 15:00 23:00 Intake Total 360 ml Output Total 550 ml Balance -190 ml Exam: resting comfortably no abdominal tenderness Laboratory Laboratory Tests Test 04/14/17 09:44 04/15/17 06:48 White Blood Count 11.6 10.9 Red Blood Count 3.31 3.18 Hemoglobin 9.3 9.2 Hematocrit 28.5 27.2 Mean Corpuscular Volume 86.2 85.7 Mean Corpuscular Hemoglobin 28.2 28.8 Mean Corpuscular Hemoglobin Concent 32.7 33.6 Red Cell Distribution Width 15.9 15.3 Platelet Count 252 266 Mean Platelet Volume 7.5 7.4 Blood Urea Nitrogen 10 8 Creatinine 0.73 0.61 Random Glucose 213 128 Total Protein 6.1 Albumin 2.1 Calcium Level 8.3 8.2 Alkaline Phosphatase 72 Aspartate Amino Transf (AST/SGOT) 22 Alanine Aminotransferase (ALT/SGPT) 44 Total Bilirubin 1.0 Direct Bilirubin 0.4 Sodium Level 135 138 Potassium Level 3.7 4.2 Chloride Level 99 101 Carbon Dioxide Level 28.5 32.0 Anion Gap 8 5 Estimat Glomerular Filtration Rate 106 130 Indirect Bilirubin 0.6 Neutrophils (%) (Auto) 83.4 Lymphocytes (%) (Auto) 5.2 Monocytes (%) (Auto) 10.6 Eosinophils (%) (Auto) 0.7 Basophils (%) (Auto) 0.1 Neutrophils # (Auto) 9.1 Lymphocytes # (Auto) 0.6 Monocytes # (Auto) 1.2 Eosinophils # (Auto) 0.1 Basophils # (Auto) 0.0 CBC Comment DIFF FINAL Differential Comment Phosphorus Level 2.5 Magnesium Level 2.0 Assessment and Plan Plan POD#6 looks great reg diet [facility]/ad lesa/shower Discharge Planning rehab Jose Chau MD Apr 15, 2017 09:30
[2017-04-15] MEDS ORDERED: METOCLOPRAMIDE HCL 10 MG TAB ONE (18:15)
[2017-04-15] MEDS ORDERED: LOSARTAN 50 MG TAB ONE (20:45)
[2017-04-15] MEDS ORDERED: DOCUSATE SODIUM 100 MG CAP ONE (20:45)
[2017-04-15] MEDS ORDERED: CARVEDILOL 6.25 MG TAB ONE (20:45)
[2017-04-15] MEDS ORDERED: ATORVASTATIN 40 MG TAB ONE (20:45)
[2017-04-15] MEDS ORDERED: FENOFIBRATE 145 MG TAB ONE (20:46)
[2017-04-15] MEDS ORDERED: TAMSULOSIN HCL 0.4 MG CAP ONE (20:46)
[2017-04-15] MEDS ORDERED: buPROPion HCL 150 MG SUSTAINED RELEASE TAB PO ONE (20:47)
[2017-04-15] MEDS: FENOFIBRATE 145 MG TAB PO SCH (20:56)
[2017-04-15] MEDS: LOSARTAN 50 MG TAB PO SCH (20:56)
[2017-04-15] MEDS: ATORVASTATIN 40 MG TAB PO SCH (20:56)
[2017-04-16] VITALS (17 sets, daily range): BP systolic 137–164; BP diastolic 63–70; PULSE 77–90; RESP 16–20; TEMP 97.6–99.2; O2SAT 93–96
[2017-04-16] MEDS: INSULIN ASPART SUPPLEMENTAL SCALE SQ SCH ×2 (08:00→12:00)
[2017-04-16] MEDS: CARVEDILOL 6.25 MG TAB PO SCH (08:32)
[2017-04-16] MEDS: FINASTERIDE 5 MG TAB PO SCH (08:32)
[2017-04-16] MEDS: prednisoLONE ACETATE 1% OPHT SUSP 5 ML BTL EACH EYE SCH (08:32)
[2017-04-16] MEDS: ASPIRIN 81 MG CHEW TAB CHEW SCH (08:32)
[2017-04-16] MEDS: CHOLECALCIFEROL (VIT D3) 1000 UNIT TAB PO SCH (08:32)
[2017-04-16] MEDS: DOCUSATE SODIUM 100 MG CAP PO SCH (08:33)
[2017-04-16] MEDS: TAMSULOSIN HCL 0.4 MG CAP PO SCH (08:33)
[2017-04-16] MEDS: buPROPion HCL 150 MG SUSTAINED RELEASE TAB PO SCH (08:33)
[2017-04-16] MEDS: MULTIVITAMINS/MINERALS THERAPEUTIC TAB PO SCH (08:33)
[2017-04-16] MEDS: PANTOPRAZOLE SOD 40 MG DELAYED RELEASE TAB PO SCH (08:33)
[2017-04-16] MEDS: FUROSEMIDE 20 MG TAB PO SCH (08:33)
[2017-04-16] MEDS: METOCLOPRAMIDE HCL 10 MG TAB PO SCH ×2 (08:33→12:30)
[2017-04-16] MEDS: FAMOTIDINE 20 MG TAB PO SCH (08:33)
[2017-04-16] MEDS: GLIMEPIRIDE 4 MG TAB PO SCH (08:34)
[2017-04-16] MEDS: ENOXAPARIN SODIUM 30 MG/0.3 ML SYRINGE SQ SCH (08:35)
--- NOTE | 2017-04-16 09:50 | PD.VS.PN ---
Subjective POD #: 7 Procedure(s): mesenteric bypass Subjective/Hospital Course Afebrile 71/M Pt w/o complaints Denies abdominal pain Pt reported he has been eating well BM last night Objective Vitals/I&O Date Time Temp Pulse Resp B/P (MAP) Pulse Ox O2 Delivery O2 Flow Rate FiO2 04/16/17 09:00 86 04/16/17 08:00 80 04/16/17 07:45 97.6 84 18 148/66 (93) 93 04/16/17 07:45 93 Nasal Cannula 1.00 04/16/17 07:00 85 04/16/17 06:04 90 04/16/17 05:11 90 04/16/17 04:00 88 04/16/17 04:00 98.7 88 20 156/70 (98) 94 04/16/17 03:04 94 Nasal Cannula 2.00 04/16/17 03:00 85 04/16/17 02:09 85 04/16/17 01:00 89 04/16/17 00:00 94 Nasal Cannula 2.00 04/16/17 00:00 99.2 85 16 164/70 (101) 96 04/16/17 00:00 86 04/15/17 23:00 87 04/15/17 22:00 87 04/15/17 21:00 90 04/15/17 20:00 87 04/15/17 20:00 88 Room Air 04/15/17 20:00 99.2 87 18 194/86 (122) 94 04/15/17 19:00 85 04/15/17 18:00 85 04/15/17 17:00 91 04/15/17 16:00 89 04/15/17 15:22 96 Nasal Cannula 2.00 04/15/17 15:20 98.1 93 16 158/67 (97) 96 04/15/17 15:00 88 04/15/17 11:39 92 Nasal Cannula 2.00 04/15/17 11:11 92 Nasal Cannula 2.00 04/15/17 11:09 99.3 88 20 164/70 (101) 92 04/15/17 11:00 84 04/16/17 04/16/17 04/16/17 07:00 15:00 23:00 Intake Total 420 ml Output Total 1650 ml Balance -1230 ml Exam: GENERAL: A&Ox3, NAD, GCS15 SKIN: Warm and dry./ abdominal incision intact with surgical glue closure w/o R/ D/S/O GASTROINTESTINAL: S/NT MUSCULOSKELETAL: No cyanosis, or edema. Assessment and Plan Assessment: (1) Mesenteric artery insufficiency Status: Acute Plan POD# 7 S/P mesenteric artery bypass Pt looks great and is eating well Pt w/o c/o abdominal pain BM last night Plan D/C to Rehab Arranged Out patient f/u Amee VELASCO [facility]/[place] [phone] Discharge Planning D/C to Rehab Amee Melara Apr 16, 2017 09:50
--- NOTE | 2017-04-16 10:03 | PD.VS.DC ---
Discharge Summary Admission Date: Apr 09, 2017 at 06:41 Discharge Date: Apr 16, 2017 Admission Diagnosis: (1) Mesenteric artery insufficiency Discharge Diagnosis: (1) Mesenteric artery insufficiency ICD Codes: K55.1 - Chronic vascular disorders of intestine Status: Chronic Brief History from admission Mr. Streeter is a 71/M with a PMH of chronic mesenteric ischemia Procedure(s): mesenteric bypass Significant Findings GENERAL: A&Ox3, NAD, GCS15 SKIN: Warm and dry./ abdominal incision intact with surgical glue closure w/o R/ D/S/O GASTROINTESTINAL: S/NT MUSCULOSKELETAL: No cyanosis, or edema. Pt denies abdominal pain Laboratory Tests Test 04/13/17 23:20 04/14/17 09:44 04/15/17 06:48 Red Blood Count 2.86 MIL/MM3 (4.50-5.90) 3.31 MIL/MM3 (4.50-5.90) 3.18 MIL/MM3 (4.50-5.90) Hemoglobin 8.2 GM/DL (13.0-17.0) 9.3 GM/DL (13.0-17.0) 9.2 GM/DL (13.0-17.0) Hematocrit 24.3 % (39.0-51.0) 28.5 % (39.0-51.0) 27.2 % (39.0-51.0) Neutrophils (%) (Auto) 84.6 % (16.0-70.0) 83.4 % (16.0-70.0) Lymphocytes (%) (Auto) 5.4 % (9.0-44.0) 5.2 % (9.0-44.0) Monocytes (%) (Auto) 9.4 % (0.0-8.0) 10.6 % (0.0-8.0) Neutrophils # (Auto) 8.4 TH/MM3 (1.8-7.7) 9.1 TH/MM3 (1.8-7.7) Lymphocytes # (Auto) 0.5 TH/MM3 (1.0-4.8) 0.6 TH/MM3 (1.0-4.8) Creatinine 0.56 MG/DL (0.60-1.30) Calcium Level 8.0 MG/DL (8.5-10.1) 8.3 MG/DL (8.5-10.1) 8.2 MG/DL (8.5-10.1) Potassium Level 3.2 MEQ/L (3.5-5.1) White Blood Count 11.6 TH/MM3 (4.0-11.0) Random Glucose 213 MG/DL (74-106) 128 MG/DL (74-106) Total Protein 6.1 GM/DL (6.4-8.2) Albumin 2.1 GM/DL (3.4-5.0) Direct Bilirubin 0.4 MG/DL (0.0-0.2) Sodium Level 135 MEQ/L (136-145) Monocytes # (Auto) 1.2 TH/MM3 (0-0.9) Hospital Course: &2/M hx of mesenteric ischemia S/P mesenteric artery bypass POD 7 w/o complications Pt d/c to rehab for optimal healing and continued rehabilitative services Discharge Condition: Good Discharge Disposition: Discharge to SNF Discharge Instructions: Report any new onset abdominal pain Report any new onset fever or chills Report any new onset redness, drainage or swelling near abdominal incision Do NOT apply any creams or ointments to incision as it may loosen the surgical glue May Shower NO tub baths, swimming or submerging in the ocean until incision is fully healed Activities as tolerated F/U in 2W (appointment time and date was given to the patient) Call with any concerns or questions Amee VELASCO [facility]/[place] [phone] Any questions or concerns: Call [facility] V[facility] Surgery at [facility] [phone] Amee Melara Apr 16, 2017 10:03
== END 2017-04-16 15:19 | DRG 357 ==
LOC: HSDI 04-09 06:41 → HCVR 04-09 13:35 → HCPC 04-15 08:41 → HCVI 04-15 08:45 → HCPC 04-15 14:15
PROVIDERS: ADMIT Surgery; ATTEND Surgery
PROC: 041 Lower Arteries, Bypass (ICD-10-PCS; 2017-04-09)
PROC: 041 Lower Arteries, Bypass (ICD-10-PCS; 2017-04-09)
PROC: 30233K1 Transfusion of Nonautologous Frozen Plasma into Peripheral Vein, Percutaneous Approach (ICD-10-PCS; 2017-04-09)
PROC: 30233N1 Transfusion of Nonautologous Red Blood Cells into Peripheral Vein, Percutaneous Approach (ICD-10-PCS; principal; 2017-04-09 08:46)
DX: K55.1 Chronic vascular disorders of intestine (principal); I42.9 Cardiomyopathy, unspecified; N17.9 Acute kidney failure, unspecified; E11.51 Type 2 diabetes mellitus with diabetic peripheral angiopathy without gangrene; I95.9 Hypotension, unspecified; D64.9 Anemia, unspecified; E11.649 Type 2 diabetes mellitus with hypoglycemia without coma; G47.33 Obstructive sleep apnea (adult) (pediatric); I25.10 Atherosclerotic heart disease of native coronary artery without angina pectoris; R00.0 Tachycardia, unspecified; I71.4 Abdominal aortic aneurysm, without rupture; N40.0 Benign prostatic hyperplasia without lower urinary tract symptoms; E78.5 Hyperlipidemia, unspecified; E83.51 Hypocalcemia; G47.00 Insomnia, unspecified; Z87.891 Personal history of nicotine dependence; Z95.820 Peripheral vascular angioplasty status with implants and grafts; I25.2 Old myocardial infarction; Z95.1 Presence of aortocoronary bypass graft
CPT/HCPCS: 36415; 36430; 71010; 71020; 80048; 80076; 81001; 82948; 83735; 84100; 84155; 85014; 85018; 85025; 85027; 85610; 85730; 86850; 86900; 86901; 86920; 86922; 86927; 94150; C1768; C1769; J0131; J0610; J0690; J1170; J1644; J1650; J1815; J1940; J2270; J3010; J3480; J7030; J7040; J7050; J7120; P9016; P9017

== ENCOUNTER → 2017-04-08 | Outpatient (CLI) | payer MEDICARE ==
[~2017-04-08] MED LIST changes: +CARA1TAB6 PO; +CARV3.12 PO; +CENTTAB20 PO; +CIPR500T2 PO; +CLOP75TA PO; +DICY10CA12 PO; +DIPH2.5T14 PO; +FENO145T2 PO; +FURO20TA PO; +HEPARIN SODIUM - SQ 10,000 UNITS/ML VIAL ONE; +HEPARIN-NS/PF INJ 0 ML ONE; +HYDR-2374 PO; +HYDR-3516 PO; +HYDR-3583 PO; +HYDROmorphone HCL PF 1 MG/ML VIAL ONE; +HYOS0.128 PO; +LEVO500T8 PO; +LIPI40TA PO; +OMEP40CA2 PO; +PREC50TA PO; +RANI150C PO; +TAMS0.4C4 PO; +THROMBIN (TOPICAL) 20,000 UNIT SPRAY KIT ONE; +TOPR25TA PO; +TRAM50TA PO; +ULTR50TA5 PO; +VITA100018 PO; +ceFAZolin 2 GM PREMIX 0 ML ONE
--- NOTE | 2017-04-08 15:22 | RADRPT ---
EXAM DATE/TIME: 04/08/2017 15:14 [facility] COMPARISON: No previous studies available for comparison. INDICATIONS : Pre op to evaluate for pneumothorax, pneumonia, or communicable diseases. MEDICAL HISTORY : None. SURGICAL HISTORY : Cardiac bypass. ENCOUNTER: Initial ACUITY: 1 day PAIN SCORE: 0/10 LOCATION: Bilateral chest FINDINGS: The patient is post median sternotomy. There are multiple surgical clips identified. The heart is nor mal in size. The lungs are clear. The visualized bony structures are grossly intact. CONCLUSION: 1. Post surgical changes. No acute abnormality. The lungs are clear. Dionte Bush MD on April 08, 2017 at 15:20 Board Certified Radiologist. This report was verified electronically.
== END ==
LOC: CPRE 13:45
PROVIDERS: ATTEND Surgery
DX: Z01.812 Encounter for preprocedural laboratory examination (principal); Z01.811 Encounter for preprocedural respiratory examination; K55.1 Chronic vascular disorders of intestine
CPT/HCPCS: 36415; 71020; 80048; 81001; 85027; 85610; 86850; 86900; 86901; 86920; 86922; J0690; J1170; J1644

== ENCOUNTER 2017-04-20 01:03 | Inpatient (IN) | payer MEDICARE ==
[2017-04-20] VITALS (12 sets, daily range): BP systolic 144–187; BP diastolic 64–74; PULSE 81–103; RESP 16–18; TEMP 98–98.6; O2SAT 92–96
[~2017-04-20] VITALS: Ht 170.2 cm; Wt 72.9 kg
[~2017-04-20 01:03] MED LIST changes: -CARA1TAB6 PO; -CIPR500T2 PO; -HEPARIN SODIUM - SQ 10,000 UNITS/ML VIAL ONE; -HEPARIN-NS/PF INJ 0 ML ONE; -HYDR-2374 PO; -HYDR-3516 PO; -HYDROmorphone HCL PF 1 MG/ML VIAL ONE; -LEVO500T8 PO; -LIPI40TA PO; -PREC50TA PO; -THROMBIN (TOPICAL) 20,000 UNIT SPRAY KIT ONE; -TOPR25TA PO; -ULTR50TA5 PO; -ceFAZolin 2 GM PREMIX 0 ML ONE
[2017-04-20 02:03] LABS: AUTOMATED NEUTROPHIL # 12.5 TH/MM3 (1.8-7.7); BASOPHIL % 0.3 % (0.0-2.0); EOSINOPHIL # 0.1 TH/MM3 (0-0.4); EOSINOPHIL % 0.8 % (0.0-4.0); HEMATOCRIT 28.2 % (39.0-51.0); HEMO FLAGS DIFF FINAL; LYMPHOCYTE # 0.9 TH/MM3 (1.0-4.8); MEAN CELL VOLUME 85.1 FL (80.0-100.0); MEAN CORPUSCULAR HGB CONC 32.9 % (32.0-36.0); MONO % 6.5 % (0.0-8.0); NEUT % 86.4 % (16.0-70.0); PLATELET COUNT 598 TH/MM3 (150-450); RED BLOOD COUNT 3.32 MIL/MM3 (4.50-5.90); RED CELL DISTRIBUTION WIDTH 15.7 % (11.6-17.2); WHITE BLOOD COUNT 14.4 TH/MM3 (4.0-11.0)
[2017-04-20 02:21] LABS: ALT (GPT) 35 U/L (12-78); ANION GAP 8 MEQ/L (5-15); AST (GOT) 24 U/L (15-37); BICARBONATE 25.7 MEQ/L (21.0-32.0); BLOOD UREA NITROGEN 10 MG/DL (7-18); CHLORIDE 102 MEQ/L (98-107); GLOMERULAR FILTRATION RATE 109 ML/MIN (>89); POTASSIUM 3.4 MEQ/L (3.5-5.1); SODIUM (NA) 136 MEQ/L (136-145)
[2017-04-20 02:22] LABS: ALKALINE PHOSPHATASE 68 U/L (45-117); TOTAL BILIRUBIN ADULT 0.4 MG/DL (0.2-1.0)
[2017-04-20 03:09] LABS: BLOOD, URINE NEG (NEG); GLUCOSE,URINE NEG (NEG); HYALINE CAST, URINE 1 /lpf (RARE); KETONE, URINE NEG (NEG); NITRITE,URINE NEG (NEG); PH, URINE 5.5 (5.0-8.5); URINE COLOR YELLOW (YELLW/STRAW)
[2017-04-20 03:13] LABS: COMMENT (UR) CULT NOT INDICATED; CULTURE IF INDICATED CULT NOT INDICATED
--- NOTE | 2017-04-20 03:15 | RADRPT ---
EXAM DATE/TIME: 04/20/2017 02:57 [facility] COMPARISON: CHEST SINGLE AP, April 09, 2017, 14:04. INDICATIONS : Low glucose and weakness MEDICAL HISTORY : Diabetes mellitus type II. Hypertension Hypercholesterolemia. GERD SURGICAL HISTORY : CABG. Tonsillectomy. Cardiac Cath, Left carotid endardectomy, ENCOUNTER: Initial ACUITY: 1 day PAIN SCORE: 6/10 LOCATION: Bilateral chest FINDINGS: A single view of the chest demonstrates moderate right effusion. No pneumothorax. Minimal left basila r atelectasis. Previous median sternotomy. CONCLUSION: 1. Moderate right pleural effusion. No pneumothorax. Jorge Jacobs MD on April 20, 2017 at 3:11 Board Certified Radiologist. This report was verified electronically.
[2017-04-20] MEDS ORDERED: BISACODYL 10 MG SUPP RECTAL PRN (04:15)
[2017-04-20] MEDS ORDERED: SODIUM CHLORIDE 0.9% FLUSH 10 ML FLUSH IV FLUSH PRN (04:15)
[2017-04-20] MEDS ORDERED: HYOSCYAMINE 0.125 MG TAB PO SCH (04:15)
[2017-04-20] MEDS ORDERED: NALOXONE HCL 0.4 MG/ML AMP IV PUSH PRN (04:15)
[2017-04-20] MEDS ORDERED: MAGNESIUM HYDROXIDE SUSP 30 ML CUP PO PRN (04:15)
[2017-04-20] MEDS ORDERED: SENNOSIDES 8.6 MG TAB PO PRN (04:15)
[2017-04-20] MEDS ORDERED: LACTULOSE SYRUP 20 GM/30 ML CUP PO PRN (04:15)
[2017-04-20] MEDS ORDERED: DIPHENOXYLATE/ATROPINE 2.5 MG/0.025 MG TAB PO PRN (04:15)
[2017-04-20] MEDS ORDERED: DICYCLOMINE HCL 10 MG CAP PO PRN (04:15)
--- NOTE | 2017-04-20 04:55 | PD ---
HPI Chief Complaint: Diabetic Time Seen by Provider: 01:26 Travel History International Travel<30 days: No Contact w/Intl Traveler<30days: No Traveled to known affect area: No History of Present Illness HPI This is a 71 year old male who has a history of diabetes who had a bilateral mesenteric bypass performed on April 09 who presents to the emergency department with low blood sugar. He is on Glimepiride which he has been receiving at rehab. The patient had an episode this morning and his rehabilitation where he fell. At that time his blood sugar was 14. He did not hit his head. They gave him some food and his blood sugar improved to 70. Later in the day that checked his blood sugar again and it was low so they called EMS. When EMS arrived the blood sugar was 41. He was given D10 en route to the emergency department. He reports that he feels well. He says he' s been healing well from his surgery, he denies any fevers or chills, cough or dysuria. PFSH Past Medical History Cancer: No Cardiovascular Problems: Yes (quad bypass 15 yrs ago, CHF) Diabetes: Yes Patient Takes Glucophage: No Diminished Hearing: No Endocrine: Yes Gastrointestinal Disorders: Yes (acid reflux) Genitourinary: Yes (enlarged prostate) Hepatitis: No Hiatal Hernia: No Hypertension: Yes Immune Disorder: No Medical other: Yes (pvd/pad, chol) Musculoskeletal: Yes (arthritis bilat shoulders) Neurologic: No Psychiatric: No Respiratory: No Thyroid Disease: No Tetanus Vaccination: Unknown Influenza Vaccination: Yes Past Surgical History Abdominal Surgery: No AICD: No Cardiac Surgery: Yes (CABGX4, CARDIAC CATH, L CAROTID ENDARTECTOMY) Ear Surgery: No Endocrine Surgery: No Eye Surgery: Yes (bilat cataracts) Gynecologic Surgery: No Joint Replacement: No Oral Surgery: Yes (tonsillectomy) Pacemaker: No Thoracic Surgery: No Other Surgery: Yes Social History Alcohol Use: No Tobacco Use: No Substance Use: No Allergies-Medications (Allergen,Severity, Reaction): Coded Allergies: No Known Allergies (Unverified , 04/20/17) Reported Meds & Prescriptions Reported Meds & Active Scripts Active Reported Carvedilol 3.125 Mg Tab 2 Tab PO BID Hyoscyamine (Hyoscyamine Sulfate) 0.125 Mg Tab 0.125 Mg PO Q6H Tramadol (Tramadol HCl) 50 Mg Tab 50 Mg PO Q8H PRN Hydrocodone-Acetaminophen 10-325 mg Tab 1 Tab PO Q8HR PRN Fenofibrate 145 Mg Tab 145 Mg PO HS Dicyclomine (Dicyclomine HCl) 10 Mg Cap 10 Mg PO BID PRN Diphenoxylate-Atropine 2.5-0.025 Mg Tab 1 Tab PO Q6H PRN Clopidogrel (Clopidogrel Bisulfate) 75 Mg Tab 75 Mg PO DAILY Omeprazole 40 Mg Cap 40 Mg PO DAILY Tamsulosin (Tamsulosin HCl) 0.4 Mg Cap 0.4 Mg PO BID Ranitidine (Ranitidine HCl) 150 Mg Cap 150 Mg PO DAILY Furosemide 20 Mg Tab 20 Mg PO HS Centrum Silver Ultra Mens (Multiple Vitamins W/ Minerals) 300 Mcg-600 Mcg-300 Mcg Tab 1 Tab PO DAILY Vitamin D3 (Cholecalciferol) 1,000 Unit Tab 1,000 Units PO DAILY Crestor (Rosuvastatin Calcium) 20 Mg Tab 20 Mg PO HS Reglan (Metoclopramide HCl) 10 Mg Tab 10 Mg PO TIDAC Cozaar (Losartan Potassium) 100 Mg Tab 100 Mg PO HS Glimepiride 4 Mg Tab 4 Mg PO BID Take with breakfast or first main meal Proscar (Finasteride) 5 Mg Tab 5 Mg PO DAILY Do not crush. Ferrous Sulfate 325 Mg (65 Mg Iron) Tablet 325 Mg PO DAILY Cilostazol 100 Mg Tab 100 Mg PO BID Wellbutrin Xl 24 HR (Bupropion HCl) 150 Mg Tab 150 Mg PO BID Aspirin 81 Mg Chew 81 Mg CHEW DAILY Vitamin C ER (Ascorbic Acid) 500 Mg Avtar 1,000 Mg PO DAILY Review of Systems Except as stated in HPI: all other systems reviewed are Neg Physical Exam Narrative GENERAL:Well appearing, no acute distress SKIN: Long incisional scar on the mid abdomen, well healing with no erythema or drainage. HEAD: Atraumatic. Normocephalic. EYES: Pupils equal and round. No injection or drainage. ENT: Moist mucous membranes NECK: Trachea midline. CARDIOVASCULAR: Regular rate and rhythm. No murmur appreciated. RESPIRATORY: Clear to auscultation. Breath sounds equal bilaterally. GASTROINTESTINAL: Abdomen soft, non-tender, nondistended. see skin exam. MUSCULOSKELETAL: No obvious deformities. NEUROLOGICAL: Awake and alert. No obvious cranial nerve deficits. Moving all extremities. PSYCHIATRIC: Appropriate mood and affect; insight and judgment normal. Data Data Last Documented VS Vital Signs Date Time Temp Pulse Resp B/P (MAP) Pulse Ox O2 Delivery O2 Flow Rate FiO2 04/20/17 02:37 99 18 150/65 (93) 94 Room Air 04/20/17 01:07 98.6 Orders Orders Complete Blood Count With Diff (04/20/17 01:26) Comprehensive Metabolic Panel (04/20/17 01:26) ^ Insert Iv (04/20/17 01:26) Lactic Acid (04/20/17 01:26) Urinalysis - C+S If Indicated (04/20/17 02:47) Chest, Single Ap (04/20/17 ) Admit Order (Ed Use Only) (04/20/17 03:19) Labs Laboratory Tests Test 04/20/17 01:38 04/20/17 02:50 White Blood Count 14.4 TH/MM3 Red Blood Count 3.32 MIL/MM3 Hemoglobin 9.3 GM/DL Hematocrit 28.2 % Mean Corpuscular Volume 85.1 FL Mean Corpuscular Hemoglobin 28.0 PG Mean Corpuscular Hemoglobin Concent 32.9 % Red Cell Distribution Width 15.7 % Platelet Count 598 TH/MM3 Mean Platelet Volume 7.7 FL Neutrophils (%) (Auto) 86.4 % Lymphocytes (%) (Auto) 6.0 % Monocytes (%) (Auto) 6.5 % Eosinophils (%) (Auto) 0.8 % Basophils (%) (Auto) 0.3 % Neutrophils # (Auto) 12.5 TH/MM3 Lymphocytes # (Auto) 0.9 TH/MM3 Monocytes # (Auto) 0.9 TH/MM3 Eosinophils # (Auto) 0.1 TH/MM3 Basophils # (Auto) 0.0 TH/MM3 CBC Comment DIFF FINAL Differential Comment Blood Urea Nitrogen 10 MG/DL Creatinine 0.71 MG/DL Random Glucose 124 MG/DL Total Protein 6.1 GM/DL Albumin 2.1 GM/DL Calcium Level 7.6 MG/DL Alkaline Phosphatase 68 U/L Aspartate Amino Transf (AST/SGOT) 24 U/L Alanine Aminotransferase (ALT/SGPT) 35 U/L Total Bilirubin 0.4 MG/DL Sodium Level 136 MEQ/L Potassium Level 3.4 MEQ/L Chloride Level 102 MEQ/L Carbon Dioxide Level 25.7 MEQ/L Anion Gap 8 MEQ/L Estimat Glomerular Filtration Rate 109 ML/MIN Lactic Acid Level 1.8 mmol/L Urine Color YELLOW Urine Turbidity CLEAR Urine pH 5.5 Urine Specific Barnard 1.009 Urine Protein NEG mg/dL Urine Glucose (UA) NEG mg/dL Urine Ketones NEG mg/dL Urine Occult Blood NEG Urine Nitrite NEG Urine Bilirubin NEG Urine Urobilinogen LESS THAN 2.0 MG/DL Urine Leukocyte Esterase NEG Urine RBC LESS THAN 1 /hpf Urine WBC 3 /hpf Urine Hyaline Casts 1 /lpf Microscopic Urinalysis Comment CULT NOT INDICATED MDM Medical Decision Making Medical Screen Exam Complete: Yes Emergency Medical Condition: Yes Medical Record Reviewed: Yes (pt. had bilateral mesenteric bypass by Dr. Chau one week ago) Interpretation(s) Mild leukocytosis Mild anemia Thrombocytosis 86% neutrophils Mild hypokalemia Lactic acid is 1.8 Urinalysis is negative for infection Chest x-ray: Moderate pleural effusion Differential Diagnosis Hypoglycemia, pneumonia, urinary tract infection, sepsis, dehydration Narrative Course This is a 71-year-old male who presents to the emergency department with 2 episodes of hypoglycemia. He is on a sulfonylurea. He was placed on a monitor and an IV was established. His blood sugar was normal here in the emergency department. Patient does have a leukocytosis of 14 which is new since his discharge. He hasn't complained of any respiratory symptoms but on chest x-ray he has a moderate right pleural effusion. Given the patient has mild leukocytosis, Patient was empirically covered with ceftriaxone and azithromycin however this may just be transudative as he did receive some blood products in the hospital and he has a history of cardiomyopathy. Patient will be admitted for further management. Physician Communication Physician Communication Discussed with Dr. Barba Diagnosis Primary Impression: Hypoglycemia Additional Impression: Pleural effusion Admitting Information Admitting Physician Requests: Observation Dimple Villafana MD Apr 20, 2017 04:55
[2017-04-20] MEDS: HYOSCYAMINE SOLN 0.125 MG/ML 15 ML BTL PO SCH ×4 (05:12→23:00)
[2017-04-20] MEDS: traMADol HCL 50 MG TAB PO PRN ×2 (05:13→16:52)
[2017-04-20] MEDS ORDERED: cefTRIAXone INJ 1,000 MG in SODIUM CHLORIDE 0.9% INJ 100 ML IV ONE (05:30)
[2017-04-20] MEDS ORDERED: AZITHROMYCIN 250 MG TAB PO ONE (06:00)
[2017-04-20] MEDS: ASCORBIC ACID 500 MG TAB PO SCH ×2 (06:21→08:04)
[2017-04-20] MEDS: buPROPion HCL 150 MG SUSTAINED RELEASE TAB PO SCH ×2 (08:04→21:57)
[2017-04-20] MEDS: CARVEDILOL 3.125 MG TAB PO SCH ×2 (08:05→21:57)
[2017-04-20] MEDS: FAMOTIDINE 20 MG TAB PO SCH ×2 (08:05→21:58)
[2017-04-20] MEDS: FERROUS SULFATE 325 MG (65 MG ELEMENTAL IRON) TAB PO SCH (08:05)
[2017-04-20] MEDS: CHOLECALCIFEROL (VIT D3) 1000 UNIT TAB PO SCH (08:05)
[2017-04-20] MEDS: CLOPIDOGREL 75 MG TAB PO SCH (08:05)
[2017-04-20] MEDS: ASPIRIN 81 MG CHEW TAB CHEW SCH (08:06)
[2017-04-20] MEDS: FINASTERIDE 5 MG TAB PO SCH (08:06)
[2017-04-20] MEDS: PANTOPRAZOLE SOD 40 MG DELAYED RELEASE TAB PO SCH (08:06)
[2017-04-20] MEDS: TAMSULOSIN HCL 0.4 MG CAP PO SCH ×2 (08:06→21:58)
[2017-04-20] MEDS: SODIUM CHLORIDE 0.9% FLUSH 10 ML FLUSH IV FLUSH SCH ×2 (08:07→21:59)
[2017-04-20] MEDS: DOCUSATE SODIUM 50 MG/SENNA 8.6 MG TAB PO SCH ×2 (08:07→21:00)
[2017-04-20] MEDS: MULTIVITAMINS/MINERALS THERAPEUTIC TAB PO SCH (08:08)
[2017-04-20] MEDS: METOCLOPRAMIDE HCL 10 MG TAB PO SCH ×3 (08:11→16:51)
[2017-04-20] MEDS: CILOSTAZOL 100 MG TAB PO SCH ×2 (08:11→21:00)
[2017-04-20] MEDS: ACETAMINOPHEN/HYDROcodone 325 MG/10 MG TAB PO PRN ×2 (11:21→21:57)
--- NOTE | 2017-04-20 13:32 | HHI.HP ---
History of Present Illness Primary Care Physician Non-Staff Admission Diagnosis hypoglycemia Diagnoses: (1) Mesenteric artery insufficiency (2) Hypoglycemia (3) Pleural effusion Diagnosis: Principal History of Present Illness pt had been on glipizide at SNF had low bs 14 reported and was transported to ed PT GIVEN AN AMP OF d50 BY EVAC no sugar other than food since then sugars now 150 will dc back to snf Past Family Social History Allergies: Coded Allergies: No Known Allergies (Unverified , 04/20/17) Past Medical History diabetes cad hptn Past Surgical History recent mesenteric artery bypass Reported Medications Reported Meds & Active Scripts Active Reported Carvedilol 3.125 Mg Tab 2 Tab PO BID Hyoscyamine (Hyoscyamine Sulfate) 0.125 Mg Tab 0.125 Mg PO Q6H Tramadol (Tramadol HCl) 50 Mg Tab 50 Mg PO Q8H PRN Hydrocodone-Acetaminophen 10-325 mg Tab 1 Tab PO Q8HR PRN Fenofibrate 145 Mg Tab 145 Mg PO HS Dicyclomine (Dicyclomine HCl) 10 Mg Cap 10 Mg PO BID PRN Diphenoxylate-Atropine 2.5-0.025 Mg Tab 1 Tab PO Q6H PRN Clopidogrel (Clopidogrel Bisulfate) 75 Mg Tab 75 Mg PO DAILY Omeprazole 40 Mg Cap 40 Mg PO DAILY Tamsulosin (Tamsulosin HCl) 0.4 Mg Cap 0.4 Mg PO BID Ranitidine (Ranitidine HCl) 150 Mg Cap 150 Mg PO DAILY Furosemide 20 Mg Tab 20 Mg PO HS Centrum Silver Ultra Mens (Multiple Vitamins W/ Minerals) 300 Mcg-600 Mcg-300 Mcg Tab 1 Tab PO DAILY Vitamin D3 (Cholecalciferol) 1,000 Unit Tab 1,000 Units PO DAILY Crestor (Rosuvastatin Calcium) 20 Mg Tab 20 Mg PO HS Reglan (Metoclopramide HCl) 10 Mg Tab 10 Mg PO TIDAC Cozaar (Losartan Potassium) 100 Mg Tab 100 Mg PO HS Glimepiride 4 Mg Tab 4 Mg PO BID Take with breakfast or first main meal Proscar (Finasteride) 5 Mg Tab 5 Mg PO DAILY Do not crush. Ferrous Sulfate 325 Mg (65 Mg Iron) Tablet 325 Mg PO DAILY Cilostazol 100 Mg Tab 100 Mg PO BID Wellbutrin Xl 24 HR (Bupropion HCl) 150 Mg Tab 150 Mg PO BID Aspirin 81 Mg Chew 81 Mg CHEW DAILY Vitamin C ER (Ascorbic Acid) 500 Mg Avtar 1,000 Mg PO DAILY Active Ordered Medications Inpatient Medications Acetaminophen/ Hydrocodone Bitart (Kennett 10-325 Mg) 1 tab Q8HR PRN PO PAIN Last administered on 04/20/17 11:21; Start 04/20/17 at 04:15 Ascorbic Acid (Vitamin C) 1,000 mg DAILY PO Last administered on 04/20/17 08: 04; Start 04/20/17 at 04:30 Aspirin (Aspirin Chew) 81 mg DAILY CHEW Last administered on 04/20/17 08:06; Start 04/20/17 at 09:00 Atorvastatin Calcium (Lipitor) 40 mg HS PO ; Start 04/20/17 at 21:00 Azithromycin (Zithromax) 500 mg ONCE ONCE PO Last administered on 04/20/17 06 :18; Start 04/20/17 at 06:00; Stop 04/20/17 at 06:01; Status DC Bisacodyl (Dulcolax Supp) 10 mg DAILY PRN RECTAL SEVERE CONSITIPATION; Start at 04:15 Bupropion HCl (Wellbutrin Sr) 150 mg BID PO Last administered on 04/20/17 08: 04; Start 04/20/17 at 09:00 Carvedilol (Coreg) 6.25 mg BID PO Last administered on 04/20/17 08:05; Start 04/20/17 at 09:00 Ceftriaxone Sodium 1000 mg/ Sodium Chloride 100 ml @ 200 mls/hr ONCE ONCE IV Last administered on 04/20/17 06:18; Start 04/20/17 at 05:30; Stop 04/20/17 at 05:59; Status DC Cholecalciferol (Vitamin D3) 1,000 units DAILY PO Last administered on 08:05; Start 04/20/17 at 09:00 Cilostazol (Pletal) 100 mg BID PO Last administered on 04/20/17 08:11; Start 04/20/17 at 09:00 Clopidogrel Bisulfate (Plavix) 75 mg DAILY PO Last administered on 04/20/17 08 :05; Start 04/20/17 at 09:00 Dicyclomine HCl (Bentyl) 10 mg BID PRN PO Bowel Management; Start 04/20/17 at 04:15 Diphenoxylate HCl/ Atropine (Lomotil Tab) 1 tab Q6H PRN PO DIARRHEA; Start at 04:15 Famotidine (Pepcid) 20 mg BID PO Last administered on 04/20/17 08:05; Start at 09:00 Fenofibrate (Tricor) 145 mg HS PO ; Start 04/20/17 at 21:00 Ferrous Sulfate (Ferrous Sulfate) 325 mg DAILY PO Last administered on 08:05; Start 04/20/17 at 09:00 Finasteride (Proscar) 5 mg DAILY PO Last administered on 04/20/17 08:06; Start 04/20/17 at 09:00 Furosemide (Lasix) 20 mg HS PO ; Start 04/20/17 at 21:00 Hyoscyamine Sulfate (Levsin Liq) 0.125 mg Q6H PO Last administered on 05:12; Start 04/20/17 at 05:00 Hyoscyamine Sulfate (Levsin) 0.125 mg Q6H PO ; Start 04/20/17 at 04:15; Stop at 04:41; Status DC Influenza Virus Vaccine (Flu (Quadrivalent) Vaccine Inj) 0.5 ml ONCE ONCE IM ; Start 04/21/17 at 09:00; Stop 04/21/17 at 09:01 Lactulose (Lactulose Liq) 30 ml DAILY PRN PO SEVERE CONSITIPATION; Start at 04:15 Losartan Potassium (Cozaar) 100 mg HS PO ; Start 04/20/17 at 21:00 Magnesium Hydroxide (Milk Of Magnesia Liq) 30 ml Q12H PRN PO MILD - MODERATE CONSTIPATION; Start 04/20/17 at 04:15 Metoclopramide HCl (Reglan) 10 mg TIDAC PO Last administered on 04/20/17 11:21 ; Start 04/20/17 at 08:00 Multivitamins/ Minerals Therapeutic (Theragran M Tab) 1 tab DAILY PO ; Start at 09:00 Naloxone HCl (Narcan Inj) 0.4 mg UNSCH PRN IV PUSH SEE LABEL COMMENTS; Start at 04:15 Pantoprazole Sodium (Protonix) 40 mg DAILY PO Last administered on 04/20/17 08 :06; Start 04/20/17 at 09:00 Pneumococcal Polyvalent Vaccine (Pneumovax-23 Inj) 25 mcg ONCE ONCE IM ; Start 04/21/17 at 09:00; Stop 04/21/17 at 09:01 Senna/Docusate Sodium (Charo-Colace) 1 tab BID PO ; Start 04/20/17 at 09:00 Sennosides (Senokot) 17.2 mg Q12H PRN PO MODERATE - SEVERE CONSTIPATION; Start 04/20/17 at 04:15 Sodium Chloride (NS Flush) 2 ml BID IV FLUSH Last administered on 04/20/17 08: 07; Start 04/20/17 at 09:00 Tamsulosin HCl (Flomax) 0.4 mg BID PO Last administered on 04/20/17 08:06; Start 04/20/17 at 09:00 Tramadol HCl (Ultram) 50 mg Q8H PRN PO PAIN Last administered on 04/20/17 05: 13; Start 04/20/17 at 04:15 Family History pos for diabetes and hptn Social History non smoker rare drinker Physical Exam Vital Signs Vital Signs Date Time Temp Pulse Resp B/P (MAP) Pulse Ox O2 Delivery O2 Flow Rate FiO2 04/20/17 11:24 98.0 81 18 144/69 (94) 95 04/20/17 09:35 103 04/20/17 09:13 98.0 88 17 167/72 (103) 95 160/72 (101) 04/20/17 06:44 90 04/20/17 05:42 98.6 86 17 173/72 (105) 93 04/20/17 05:20 92 18 154/65 (94) 94 04/20/17 03:41 91 18 187/74 (111) 96 Room Air 04/20/17 02:37 99 18 150/65 (93) 94 Room Air 04/20/17 01:10 Room Air 04/20/17 01:07 98.6 88 16 92 Physical Exam GENERAL: This is a well-nourished, well-developed patient, in no apparent distress. SKIN: No rashes, ecchymoses or lesions. Cool and dry. HEAD: Atraumatic. Normocephalic. No temporal or scalp tenderness. EYES: Pupils equal round and reactive. Extraocular motions intact. No scleral icterus. No injection or drainage. ENT: Nose without bleeding, purulent drainage or septal hematoma. Throat without erythema, tonsillar hypertrophy or exudate. Uvula midline. Airway patent. NECK: Trachea midline. No JVD or lymphadenopathy. Supple, nontender, no meningeal signs. CARDIOVASCULAR: Regular rate and rhythm without murmurs, gallops, or rubs. RESPIRATORY: Clear to auscultation. Breath sounds equal bilaterally. No wheezes , rales, or rhonchi. GASTROINTESTINAL: Abdomen soft, non-tender, nondistended. No hepato-splenomegaly , or palpable masses. No guarding.healing ventral incision present MUSCULOSKELETAL: Extremities without clubbing, cyanosis, or edema. No joint tenderness, effusion, or edema noted. No calf tenderness. Negative Homans sign bilaterally. NEUROLOGICAL: Awake and alert. Cranial nerves II through XII intact. Motor and sensory grossly within normal limits. Five out of 5 muscle strength in all muscle groups. Normal speech. Laboratory Laboratory Tests Test 04/20/17 01:38 04/20/17 02:50 White Blood Count 14.4 Red Blood Count 3.32 Hemoglobin 9.3 Hematocrit 28.2 Mean Corpuscular Volume 85.1 Mean Corpuscular Hemoglobin 28.0 Mean Corpuscular Hemoglobin Concent 32.9 Red Cell Distribution Width 15.7 Platelet Count 598 Mean Platelet Volume 7.7 Neutrophils (%) (Auto) 86.4 Lymphocytes (%) (Auto) 6.0 Monocytes (%) (Auto) 6.5 Eosinophils (%) (Auto) 0.8 Basophils (%) (Auto) 0.3 Neutrophils # (Auto) 12.5 Lymphocytes # (Auto) 0.9 Monocytes # (Auto) 0.9 Eosinophils # (Auto) 0.1 Basophils # (Auto) 0.0 CBC Comment DIFF FINAL Differential Comment Blood Urea Nitrogen 10 Creatinine 0.71 Random Glucose 124 Total Protein 6.1 Albumin 2.1 Calcium Level 7.6 Alkaline Phosphatase 68 Aspartate Amino Transf (AST/SGOT) 24 Alanine Aminotransferase (ALT/SGPT) 35 Total Bilirubin 0.4 Sodium Level 136 Potassium Level 3.4 Chloride Level 102 Carbon Dioxide Level 25.7 Anion Gap 8 Estimat Glomerular Filtration Rate 109 Lactic Acid Level 1.8 B-Type Natriuretic Peptide 437 Urine Color YELLOW Urine Turbidity CLEAR Urine pH 5.5 Urine Specific Isabella 1.009 Urine Protein NEG Urine Glucose (UA) NEG Urine Ketones NEG Urine Occult Blood NEG Urine Nitrite NEG Urine Bilirubin NEG Urine Urobilinogen LESS THAN 2.0 Urine Leukocyte Esterase NEG Urine RBC LESS THAN 1 Urine WBC 3 Urine Hyaline Casts 1 Microscopic Urinalysis Comment CULT NOT INDICATED Result Diagram: 04/20/17 0138 04/20/17 0138 Imaging Last 72 hours Impressions Chest X-Ray 04/20/17 0000 Signed Impressions: Service Date/Time: Thursday, April 20, 2017 02:57 - CONCLUSION: 1. Moderate right pleural effusion. No pneumothorax. MD Drake Nicole VTE Risk Assessment Caprinzenaida VTE Risk Assessment: No/Low Risk (score <= 1) Caprini Risk Assessment Model Point Value = 1 Point Value = 2 Point Value = 3 Point Value = 5 Age 41-60 Minor surgery BMI > 25 kg/m2 Swollen legs Varicose veins or History of unexplained or recurrent spontaneous Oral contraceptives or hormone replacement Sepsis (< 1 month) Serious lung disease, including pneumonia (< 1 month) Abnormal pulmonary function Acute myocardial infarction Congestive heart failure (< 1 month) History of inflammatory bowel disease Medical patient at bed rest Age 61-74 Arthroscopic surgery Major open surgery (> 45 min) Laparoscopic surgery (> 45 min) Malignancy Confined to bed (> 72 hours) Immobilizing plaster cast Central venous access Age >= 75 History of VTE Family history of VTE Factor V Leiden Prothrombin [id number] Lupus anticoagulant Anticardiolipin antibodies Elevated serum homocysteine Heparin-induced thrombocytopenia Other congenital or acquired thrombophilia Stroke (< 1 month) Elective arthroplasty Hip, pelvis, or leg fracture Acute spinal cord injury (< 1 month) Prophylaxis Regimen Total Risk Factor Score Risk Level Prophylaxis Regimen 0-1 Low Early ambulation 2 Moderate Order ONE of the following: *Sequential Compression Device (SCD) *Heparin 5000 units SQ BID 3-4 Higher Order ONE of the following medications: *Heparin 5000 units SQ TID *Enoxaparin/Lovenox 40 mg SQ daily (WT < 150 kg, CrCl > 30 mL/min) *Enoxaparin/Lovenox 30 mg SQ daily (WT < 150 kg, CrCl > 10-29 mL/min) *Enoxaparin/Lovenox 30 mg SQ BID (WT < 150 kg, CrCl > 30 mL/min) AND/OR *Sequential Compression Device (SCD) 5 or more Highest Order ONE of the following medications: *Heparin 5000 units SQ TID (Preferred with Epidurals) *Enoxaparin/Lovenox 40 mg SQ daily (WT < 150 kg, CrCl > 30 mL/min) *Enoxaparin/Lovenox 30 mg SQ daily (WT < 150 kg, CrCl > 10-29 mL/min) *Enoxaparin/Lovenox 30 mg SQ BID (WT < 150 kg, CrCl > 30 mL/min) AND *Sequential Compression Device (SCD) Assessment and Plan Problem List: (1) Hypoglycemia ICD Codes: E16.2 - Hypoglycemia, unspecified Status: Acute Plan: dc amaryl follow sugars closely avoid rx below 200 (2) Pleural effusion ICD Codes: J90 - Pleural effusion, not elsewhere classified Status: Acute Plan: consult pulmonology ceftriaxone and zithromax (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
--- NOTE | 2017-04-20 15:20 | RADRPT ---
EXAM DATE/TIME: 04/20/2017 14:37 [facility] COMPARISON: No previous studies available for comparison. INDICATIONS : Short of Breath MEDICAL HISTORY : Diabetes mellitus type II. Hypertension Hypercholesterolemia. GERD SURGICAL HISTORY : CABG. Tonsillectomy. Cardiac Cath, Left carotid endardectomy, ENCOUNTER: Subsequent ACUITY: 1 day PAIN SCORE: 6/10 LOCATION: Bilateral chest FINDINGS: PA and lateral views of the chest demonstrate a small to moderate right pleural effusion with associa favio right lower lobe airspace disease. Left lung is clear. Postsurgical features of prior median ster notomy and cardiac surgery are noted. Heart and mediastinal contours are within normal limits. Left and right side down decubitus views were also performed. The right pleural effusion appears some what loculated. CONCLUSION: 1. Mildly loculated small to moderate right pleural effusion with associated right lower lobe airspac e disease. Addison Dietrich MD on April 20, 2017 at 15:17 Board Certified Radiologist. This report was verified electronically.
[2017-04-20] MEDS: RESP: ALBUTEROL 2.5 MG/IPRATROPIUM 0.5 MG NEB (SCH) NEB ×2 (17:09→20:00)
--- NOTE | 2017-04-20 20:35 | RADRPT ---
EXAM DATE/TIME: 04/20/2017 19:52 [facility] COMPARISON: No previous studies available for comparison. INDICATIONS : Pleural effusion. MEDICAL HISTORY : Diabetes mellitus type 2. Hypercholesterolemia. Hypertension. Messenteric artery insufficiency. Enlar ged prostate. Arthritis. Congestive heart failure. SURGICAL HISTORY : Tonsillectomy. Carotid endarterectomy. CABG. Gastro bypass. Bilateral cataracts. ENCOUNTER: Initial ACUITY: 1 day PAIN SCORE: 2/10 LOCATION: Right chest MEASUREMENTS: SKIN TO PARIETAL PLEURA: 2.0 cm SKIN TO MAX SAFE DEPTH: 5.2 cm ESTIMATED FLUID VOLUME: 393.4 cc FLUID COMPOSITION: complex FINDINGS: Pleural effusion as above. A keyana was placed on the skin surface superficial to the pleural fluid col lection. Dylon Veras MD on April 20, 2017 at 20:33 Board Certified Radiologist. This report was verified electronically.
--- NOTE | 2017-04-20 21:03 | MB ---
cc: Burke YOUNG M.D. DATE OF CONSULTATION 04/20/17 REASON FOR CONSULTATION Pleural effusion. HISTORY OF PRESENT ILLNESS This is a 71-year-old white male who has had a history of mesenteric insufficiency, apparently had undergone a mesenteric artery bypass approximately 3 weeks ago. The patient has a prior history of chronic mesenteric ischemia and he has had previous history for myocardial infarct underwent CABG in 1998 as well as angioplasties and right femoral stent placement in as well as left carotid endarterectomy for carotid artery stenosis. Postoperatively, the patient was doing well after his mesenteric artery bypass and was discharged but was readmitted today due to hypoglycemia and shortness of breath. The patient had a chest x-ray which apparently showed a moderate size pleural effusion. He states that he cannot lay flat and has to keep his head __ up. He denied chest pains but has a cough and brings up very little mucus. He had no fevers or chills or night sweats. He does have some abdominal discomfort from his recent abdominal surgery. PAST MEDICAL HISTORY The patient's past history has included history for peripheral vascular disease and hyperlipidemia, history of AK, history of diabetes mellitus and prostatic hypertrophy as well as sleep apnea. PAST SURGICAL HISTORY Surgery includes endovascular stent placements in the lower extremities. CABG and right peroneal angioplasty and left external iliac angioplasty. HABITS The patient smoked one-pack per day for over 30 years and then quit. Alcohol use occasional. He lives in [place]. FAMILY HISTORY Essentially noncontributory. There is a history of hypertension. ALLERGIES NO KNOWN DRUG ALLERGIES. REVIEW OF SYSTEMS The patient has had some weight loss. No headaches or blackouts. No urinary symptoms. No leg or calf muscle pains. He does have some abdominal discomfort with epigastric distress and reflux and anxiety attacks. PHYSICAL EXAMINATION GENERAL: This averagely built elderly man who is alert and oriented in no acute distress. Mild pallor, no cyanosis or icterus. VITAL SIGNS: Blood pressure 120/70, pulse 94, respirations 22, temperature 97.5. HEENT: Head normocephalic. Pupils are reactive. Tongue is moist. Throat was clear. Nasal mucosa injected. NECK: Supple. No bruits or thyroid enlargement. CHEST: Distant breath sounds over the right lower chest with dullness to percussion of the right base. Occasional wheezes anteriorly. HEART: Heart sounds are regular S1-S2. No murmur. ABDOMEN: Abdomen is protuberant. There is an incision in the midline with molly and there is no inflammation or drainage from the wound. Bowel sounds are active. No organomegaly. EXTREMITIES: Decreased peripheral pulses. No calf tenderness. Reflexes are 1+ with no gross motor deficits. Cranial nerves grossly intact. RECTAL: Exam is deferred. IMPRESSION 1. Right pleural effusion with basilar atelectasis. 2. Status post mesenteric artery bypass. 3. History of diabetes mellitus. 4. Hypertension, hyperlipidemia. 5. Obstructive sleep apnea syndrome. PLAN The patient will be sent for an ultrasound examination of the right chest and a coagulation profile obtained. Nebulized DuoNeb solution added t.i.d. p.r.n. and we will continue with antibiotic coverage including Rocephin 1 gram IV and Zithromax 500 milligrams IV daily. The patient will be continued on Lasix 20 milligrams a day to diurese him and if there is significant effusion present on the right side a thoracentesis will be planned this week. The patient will also use an incentive spirometer every 2-3 hours and a CBC and BMP to be repeated a.m. Thank you Dr. Barba for this consultation. Zac Young MD JGABBIE/GAGE /8:26 PM /8:39 PM
[2017-04-20] MEDS: FUROSEMIDE 20 MG TAB PO SCH (21:56)
[2017-04-20] MEDS: LOSARTAN 50 MG TAB PO SCH (21:56)
[2017-04-20] MEDS: FENOFIBRATE 145 MG TAB PO SCH (21:57)
[2017-04-20] MEDS: ATORVASTATIN 40 MG TAB PO SCH (21:58)
[2017-04-21] VITALS (11 sets, daily range): BP systolic 108–159; BP diastolic 52–67; PULSE 79–106; RESP 17–18; TEMP 96.4–99.1; O2SAT 92–99
[2017-04-21] MEDS: HYOSCYAMINE SOLN 0.125 MG/ML 15 ML BTL PO SCH ×4 (05:00→21:28)
[2017-04-21] MEDS: cefTRIAXone INJ 1,000 MG in SODIUM CHLORIDE 0.9% INJ 100 ML IV SCH (06:09)
[2017-04-21] MEDS: ACETAMINOPHEN/HYDROcodone 325 MG/10 MG TAB PO PRN ×2 (06:10→08:58)
[2017-04-21 06:49] LABS: AUTOMATED NEUTROPHIL # 11.2 TH/MM3 (1.8-7.7); BASOPHIL # 0.1 TH/MM3 (0-0.2); BASOPHIL % 0.5 % (0.0-2.0); EOSINOPHIL # 0.2 TH/MM3 (0-0.4); EOSINOPHIL % 1.3 % (0.0-4.0); HEMATOCRIT 32.6 % (39.0-51.0); HEMO FLAGS DIFF FINAL; LYMPH % 9.9 % (9.0-44.0); LYMPHOCYTE # 1.4 TH/MM3 (1.0-4.8); MEAN CELL VOLUME 85.5 FL (80.0-100.0); MEAN CORPUSCULAR HEMOGLOBIN 28.4 PG (27.0-34.0); MEAN CORPUSCULAR HGB CONC 33.2 % (32.0-36.0); MONO % 6.6 % (0.0-8.0); NEUT % 81.7 % (16.0-70.0); PLATELET COUNT 816 TH/MM3 (150-450); RED BLOOD COUNT 3.82 MIL/MM3 (4.50-5.90); WHITE BLOOD COUNT 13.7 TH/MM3 (4.0-11.0)
[2017-04-21 06:58] LABS: ALKALINE PHOSPHATASE 75 U/L (45-117); ALT (GPT) 32 U/L (12-78); ANION GAP 7 MEQ/L (5-15); AST (GOT) 18 U/L (15-37); BICARBONATE 27.7 MEQ/L (21.0-32.0); BLOOD UREA NITROGEN 10 MG/DL (7-18); CHLORIDE 101 MEQ/L (98-107); GLOMERULAR FILTRATION RATE 87 ML/MIN (>89); POTASSIUM 3.7 MEQ/L (3.5-5.1); SODIUM (NA) 136 MEQ/L (136-145); TOTAL BILIRUBIN ADULT 0.5 MG/DL (0.2-1.0)
[2017-04-21] MEDS: RESP: ALBUTEROL 2.5 MG/IPRATROPIUM 0.5 MG NEB (SCH) NEB ×4 (08:51→19:36)
[2017-04-21] MEDS ORDERED: PNEUMOCOCCAL POLYVALENT INJ 25 MCG/0.5 ML SYR IM ONE (09:00)
[2017-04-21] MEDS: CLOPIDOGREL 75 MG TAB PO SCH (09:00)
[2017-04-21] MEDS ORDERED: INFLUENZA VIRUS VACCINE (QUADRIVALENT) 0.5 ML SYR IM ONE (09:00)
[2017-04-21] MEDS: ASPIRIN 81 MG CHEW TAB CHEW SCH (09:00)
[2017-04-21] MEDS: DOCUSATE SODIUM 50 MG/SENNA 8.6 MG TAB PO SCH ×2 (09:00→21:00)
--- NOTE | 2017-04-21 09:49 | PD.VS.PN ---
Subjective Subjective/Hospital Course Pt well known to me He underwent mesenteric bypass (aorto-celiac, aorto-SMA) on 04/09 and did amazingly well post-op, D/C POD#6 readmitted from rehab with pleural effusion and hypoglycemia When I saw him this morning, he is on room air and having no SOB and no tachypnea Post-prandial abdominal pain completely resolved Objective Vitals/I&O Date Time Temp Pulse Resp B/P (MAP) Pulse Ox O2 Delivery O2 Flow Rate FiO2 04/21/17 08:51 93 21 04/21/17 04:00 97.4 82 18 108/52 (70) 93 04/21/17 00:00 97.6 82 18 146/59 (88) 94 04/20/17 21:28 94 04/20/17 20:00 98.0 90 16 158/64 (95) 94 04/20/17 15:19 84 04/20/17 11:24 98.0 81 18 144/69 (94) 95 04/21/17 04/21/17 04/21/17 07:00 15:00 23:00 Intake Total 0 ml Balance 0 ml Physical Exam Abdominal incision c/d/i abdomen non-tender Laboratory Laboratory Tests Test 04/21/17 06:00 White Blood Count 13.7 Red Blood Count 3.82 Hemoglobin 10.8 Hematocrit 32.6 Mean Corpuscular Volume 85.5 Mean Corpuscular Hemoglobin 28.4 Mean Corpuscular Hemoglobin Concent 33.2 Red Cell Distribution Width 16.0 Platelet Count 816 Mean Platelet Volume 7.6 Neutrophils (%) (Auto) 81.7 Lymphocytes (%) (Auto) 9.9 Monocytes (%) (Auto) 6.6 Eosinophils (%) (Auto) 1.3 Basophils (%) (Auto) 0.5 Neutrophils # (Auto) 11.2 Lymphocytes # (Auto) 1.4 Monocytes # (Auto) 0.9 Eosinophils # (Auto) 0.2 Basophils # (Auto) 0.1 CBC Comment DIFF FINAL Differential Comment Blood Urea Nitrogen 10 Creatinine 0.86 Random Glucose 167 Total Protein 7.5 Albumin 2.7 Calcium Level 8.3 Alkaline Phosphatase 75 Aspartate Amino Transf (AST/SGOT) 18 Alanine Aminotransferase (ALT/SGPT) 32 Total Bilirubin 0.5 Sodium Level 136 Potassium Level 3.7 Chloride Level 101 Carbon Dioxide Level 27.7 Anion Gap 7 Estimat Glomerular Filtration Rate 87 Imaging Last 48 hours Impressions Chest X-Ray 04/20/17 0000 Signed Impressions: Service Date/Time: Thursday, April 20, 2017 14:37 - CONCLUSION: 1. Mildly loculated small to moderate right pleural effusion with associated right lower lobe airspace disease. Addison Dietrihc MD Chest X-Ray 04/20/17 0000 Signed Impressions: Service Date/Time: Thursday, April 20, 2017 02:57 - CONCLUSION: 1. Moderate right pleural effusion. No pneumothorax. Jorge Jacobs MD Assessment and Plan Discharge Planning Looks great. Pleural effusion is expected after supraceliac aortic cross clamping and obligate incision of diaphragmatic crura. Would favor patient mobilization and potential diureses and holding off on thoracentesis as it does not appear to be causing him any pulmonary embarrassment at the present time. He has resolution of his mesenteric ischemia symptoms and from a surgical standpoint looks great. Can f/u in my clinic as previously scheduled. Jose Chau MD [facility] [employer] system programmer [facility] - Heart and Vascular Surgery at [facility] [phone] Jose Chau MD Apr 21, 2017 09:49
[2017-04-21] MEDS: MULTIVITAMINS/MINERALS THERAPEUTIC TAB PO SCH (10:12)
[2017-04-21] MEDS: CARVEDILOL 3.125 MG TAB PO SCH ×2 (10:12→21:26)
[2017-04-21] MEDS: FERROUS SULFATE 325 MG (65 MG ELEMENTAL IRON) TAB PO SCH (10:13)
[2017-04-21] MEDS: TAMSULOSIN HCL 0.4 MG CAP PO SCH ×2 (10:13→21:26)
[2017-04-21] MEDS: buPROPion HCL 150 MG SUSTAINED RELEASE TAB PO SCH ×2 (10:13→21:27)
[2017-04-21] MEDS: AZITHROMYCIN 250 MG TAB PO SCH (10:13)
[2017-04-21] MEDS: PANTOPRAZOLE SOD 40 MG DELAYED RELEASE TAB PO SCH (10:14)
[2017-04-21] MEDS: CHOLECALCIFEROL (VIT D3) 1000 UNIT TAB PO SCH (10:14)
[2017-04-21] MEDS: ASCORBIC ACID 500 MG TAB PO SCH (10:14)
[2017-04-21] MEDS: FAMOTIDINE 20 MG TAB PO SCH ×2 (10:14→21:28)
[2017-04-21] MEDS: METOCLOPRAMIDE HCL 10 MG TAB PO SCH ×3 (10:15→18:04)
[2017-04-21] MEDS: CILOSTAZOL 100 MG TAB PO SCH ×2 (10:15→21:26)
[2017-04-21] MEDS: FINASTERIDE 5 MG TAB PO SCH (10:17)
[2017-04-21] MEDS: SODIUM CHLORIDE 0.9% FLUSH 10 ML FLUSH IV FLUSH SCH ×2 (10:17→21:27)
--- NOTE | 2017-04-21 12:00 | HHI.PR ---
Subjective Remarks resting quietly consult with pulmonary done workup for possible thoracenthesis in progress Objective Vital Signs Date Time Temp Pulse Resp B/P (MAP) Pulse Ox O2 Delivery O2 Flow Rate FiO2 04/21/17 08:51 93 21 04/21/17 08:15 96.4 80 17 159/66 (97) 93 04/21/17 04:00 97.4 82 18 108/52 (70) 93 04/21/17 00:00 97.6 82 18 146/59 (88) 94 04/20/17 21:28 94 04/20/17 20:00 98.0 90 16 158/64 (95) 94 04/20/17 15:19 84 I/O 04/20/17 04/20/17 04/20/17 04/21/17 04/21/17 04/21/17 07:00 15:00 23:00 07:00 15:00 23:00 Intake Total 240 ml 180 ml 480 ml 0 ml Output Total 300 ml Balance 240 ml -120 ml 480 ml 0 ml Intake Oral 240 ml 180 ml 480 ml 0 ml Output Urine Total 300 ml # Voids 11 6 # Bowel Movements 1 1 Result Diagram: 04/21/17 0600 04/21/17 0600 Imaging Last 72 hours Impressions Chest X-Ray 04/20/17 0000 Signed Impressions: Service Date/Time: Thursday, April 20, 2017 14:37 - CONCLUSION: 1. Mildly loculated small to moderate right pleural effusion with associated right lower lobe airspace disease. Addison Dietrich MD Chest X-Ray 04/20/17 0000 Signed Impressions: Service Date/Time: Thursday, April 20, 2017 02:57 - CONCLUSION: 1. Moderate right pleural effusion. No pneumothorax. Jorge Jacobs MD Objective Remarks GENERAL: Well-nourished, well-developed patient. SKIN: Warm and dry. HEAD: Normocephalic. EYES: No scleral icterus. No injection or drainage. NECK: Supple, trachea midline. No JVD or lymphadenopathy. CARDIOVASCULAR: Regular rate and rhythm without murmurs, gallops, or rubs. RESPIRATORY: Breath sounds decreased rll No accessory muscle use. GASTROINTESTINAL: Abdomen soft, non-tender, nondistended.healing ventral incision present EXTREMITIES: No cyanosis, or edema. NEUROLOGICAL: Awake, alert, and oriented x 3. Non-focal. Medications and IVs Inpatient Medications Acetaminophen/ Hydrocodone Bitart ([place] 10-325 Mg) 1 tab Q8HR PRN PO PAIN Last administered on 04/21/17 08:58; Start 04/20/17 at 04:15 Albuterol/ Ipratropium (Duoneb Neb) 1 ampule QID NEB NEB Last administered on 04/21/17 08:51; Start 04/20/17 at 16:00 Ascorbic Acid (Vitamin C) 1,000 mg DAILY PO Last administered on 04/21/17 10: 14; Start 04/20/17 at 04:30 Aspirin (Aspirin Chew) 81 mg DAILY CHEW Last administered on 04/20/17 08:06; Start 04/20/17 at 09:00 Atorvastatin Calcium (Lipitor) 40 mg HS PO Last administered on 04/20/17 21:58 ; Start 04/20/17 at 21:00 Azithromycin (Zithromax) 250 mg DAILY PO Last administered on 04/21/17 10:13; Start 04/21/17 at 09:00 Bisacodyl (Dulcolax Supp) 10 mg DAILY PRN RECTAL SEVERE CONSITIPATION; Start at 04:15 Bupropion HCl (Wellbutrin Sr) 150 mg BID PO Last administered on 04/21/17 10: 13; Start 04/20/17 at 09:00 Carvedilol (Coreg) 6.25 mg BID PO Last administered on 04/21/17 10:12; Start 04/20/17 at 09:00 Ceftriaxone Sodium 1000 mg/ Sodium Chloride 100 ml @ 200 mls/hr Q24H IV Last administered on 04/21/17 06:09; Start 04/21/17 at 06:00 Cholecalciferol (Vitamin D3) 1,000 units DAILY PO Last administered on 10:14; Start 04/20/17 at 09:00 Cilostazol (Pletal) 100 mg BID PO Last administered on 04/21/17 10:15; Start 04/20/17 at 09:00 Clopidogrel Bisulfate (Plavix) 75 mg DAILY PO Last administered on 04/20/17 08 :05; Start 04/20/17 at 09:00 Dicyclomine HCl (Bentyl) 10 mg BID PRN PO Bowel Management; Start 04/20/17 at 04:15 Diphenoxylate HCl/ Atropine (Lomotil Tab) 1 tab Q6H PRN PO DIARRHEA; Start at 04:15 Famotidine (Pepcid) 20 mg BID PO Last administered on 04/21/17 10:14; Start at 09:00 Fenofibrate (Tricor) 145 mg HS PO Last administered on 04/20/17 21:57; Start 04/20/17 at 21:00 Ferrous Sulfate (Ferrous Sulfate) 325 mg DAILY PO Last administered on 10:13; Start 04/20/17 at 09:00 Finasteride (Proscar) 5 mg DAILY PO Last administered on 04/21/17 10:17; Start 04/20/17 at 09:00 Furosemide (Lasix) 20 mg HS PO Last administered on 04/20/17 21:56; Start at 21:00 Glimepiride (Amaryl) 1 mg BIDAC PO ; Start 04/21/17 at 16:00 Hyoscyamine Sulfate (Levsin Liq) 0.125 mg Q6H PO Last administered on 05:12; Start 04/20/17 at 05:00 Hyoscyamine Sulfate (Levsin) 0.125 mg Q6H PO ; Start 04/20/17 at 04:15; Stop at 04:41; Status DC Influenza Virus Vaccine (Flu (Quadrivalent) Vaccine Inj) 0.5 ml ONCE ONCE IM Last administered on 04/21/17 11:45; Start 04/21/17 at 09:00; Stop 04/21/17 at 09:01; Status DC Lactulose (Lactulose Liq) 30 ml DAILY PRN PO SEVERE CONSITIPATION; Start at 04:15 Losartan Potassium (Cozaar) 100 mg HS PO Last administered on 04/20/17 21:56; Start 04/20/17 at 21:00 Magnesium Hydroxide (Milk Of Magnesia Liq) 30 ml Q12H PRN PO MILD - MODERATE CONSTIPATION; Start 04/20/17 at 04:15 Metoclopramide HCl (Reglan) 10 mg TIDAC PO Last administered on 04/21/17 10:15 ; Start 04/20/17 at 08:00 Multivitamins/ Minerals Therapeutic (Theragran M Tab) 1 tab DAILY PO Last administered on 04/21/17 10:12; Start 04/20/17 at 09:00 Naloxone HCl (Narcan Inj) 0.4 mg UNSCH PRN IV PUSH SEE LABEL COMMENTS; Start at 04:15 Pantoprazole Sodium (Protonix) 40 mg DAILY PO Last administered on 04/21/17 10 :14; Start 04/20/17 at 09:00 Pneumococcal Polyvalent Vaccine (Pneumovax-23 Inj) 25 mcg ONCE ONCE IM Last administered on 04/21/17 11:44; Start 04/21/17 at 09:00; Stop 04/21/17 at 09:01 ; Status DC Senna/Docusate Sodium (Charo-Colace) 1 tab BID PO ; Start 04/20/17 at 09:00 Sennosides (Senokot) 17.2 mg Q12H PRN PO MODERATE - SEVERE CONSTIPATION; Start 04/20/17 at 04:15 Sodium Chloride (NS Flush) 2 ml BID IV FLUSH Last administered on 04/21/17 10: 17; Start 04/20/17 at 09:00 Tamsulosin HCl (Flomax) 0.4 mg BID PO Last administered on 04/21/17 10:13; Start 04/20/17 at 09:00 Tramadol HCl (Ultram) 50 mg Q8H PRN PO PAIN Last administered on 04/20/17 16: 52; Start 04/20/17 at 04:15 Assessment and Plan Problem List: (1) Hypoglycemia ICD Codes: E16.2 - Hypoglycemia, unspecified Status: Resolved Plan: dc amaryl follow sugars closely avoid rx below 200 (2) Pleural effusion ICD Codes: J90 - Pleural effusion, not elsewhere classified Status: Acute Plan: consult pulmonology ceftriaxone and zithromax (3) Mesenteric artery insufficiency ICD Codes: K55.1 - Chronic vascular disorders of intestine Status: Chronic Plan: no treatment at present Assessment and Plan pleural effusion with leukocytosis continue abx consider thoracenthesis diabetes resume glimeperide at lower dose follow sugars closely Discussed Condition With patient BarbaAdan pelaezFrederick ORTIZ Apr 21, 2017 12:00
[2017-04-21] MEDS: GLIMEPIRIDE 1 MG TAB PO SCH (18:04)
[2017-04-21] MEDS: traMADol HCL 50 MG TAB PO PRN (18:05)
[2017-04-21 18:31] LABS: HEMATOCRIT 29.8 % (39.0-51.0); MEAN CORPUSCULAR HEMOGLOBIN 27.8 PG (27.0-34.0); MEAN CORPUSCULAR HGB CONC 32.7 % (32.0-36.0); PLATELET COUNT 767 TH/MM3 (150-450); RED CELL DISTRIBUTION WIDTH 15.4 % (11.6-17.2); WHITE BLOOD COUNT 16.4 TH/MM3 (4.0-11.0)
[2017-04-21 18:37] LABS: REVIEW FLAG FINAL
[2017-04-21 18:39] LABS: INTERNATIONAL NORMALIZED RATIO 1.1 RATIO; PROTHROMBIN TIME - PATIENT 12.7 SEC (9.8-11.6)
--- NOTE | 2017-04-21 18:59 | HHI.PR ---
Subjective Remarks Feels OK . Off O2 No SOB at rest. Seen by Dr Sanchez. No thoracentesis planned since this is an expected finding after Mesenteric bypass. Objective Vital Signs Date Time Temp Pulse Resp B/P (MAP) Pulse Ox O2 Delivery O2 Flow Rate FiO2 04/21/17 18:27 96 04/21/17 11:50 96.8 79 17 126/60 (82) 94 04/21/17 08:51 93 21 04/21/17 08:15 96.4 80 17 159/66 (97) 93 04/21/17 08:03 81 04/21/17 04:00 97.4 82 18 108/52 (70) 93 04/21/17 00:00 97.6 82 18 146/59 (88) 94 04/20/17 21:28 94 04/20/17 20:00 98.0 90 16 158/64 (95) 94 I/O 04/20/17 04/20/17 04/20/17 04/21/17 04/21/17 04/21/17 07:00 15:00 23:00 07:00 15:00 23:00 Intake Total 240 ml 180 ml 480 ml 0 ml Output Total 300 ml Balance 240 ml -120 ml 480 ml 0 ml Intake Oral 240 ml 180 ml 480 ml 0 ml Output Urine Total 300 ml # Voids 11 6 # Bowel Movements 1 1 Result Diagram: 04/21/17 1813 04/21/17 0600 Objective Remarks GENERAL: This averagely built elderly man who is alert and oriented in no acute distress. Mild pallor, no cyanosis or icterus. HEENT: Head normocephalic. Pupils are reactive. Tongue is moist. Throat was clear. Nasal mucosa clear NECK: Supple. No bruits or thyroid enlargement. CHEST: Distant breath sounds over the right lower chest with dullness to percussion of the right base. Occasional wheezes anteriorly. HEART: Heart sounds are regular S1-S2. No murmur. ABDOMEN: Abdomen is protuberant. There is an incision in the midline with molly and there is no inflammation or drainage from the wound. Bowel sounds are active. No organomegaly. EXTREMITIES: Decreased peripheral pulses. No calf tenderness. Reflexes are 1+ with no gross motor deficits. Cranial nerves grossly intact. RECTAL: Exam is deferred. Assessment and Plan Assessment and Plan IMPRESSION 1. Right pleural effusion with basilar atelectasis. 2. Status post mesenteric artery bypass. 3. History of diabetes mellitus. 4. Hypertension, hyperlipidemia. 5. Obstructive sleep apnea syndrome. Plan : 1. D/W Dr Sanchez and he recommended no intervention for the Effusion 2. D/C O2. 3. Cont Diuresis. 4. CPAP at HS. 5. OK to go home per Burke Tran MD Apr 21, 2017 18:59
[2017-04-21] MEDS: ATORVASTATIN 40 MG TAB PO SCH (21:26)
[2017-04-21] MEDS: FENOFIBRATE 145 MG TAB PO SCH (21:27)
[2017-04-21] MEDS: LOSARTAN 50 MG TAB PO SCH (21:28)
[2017-04-21] MEDS: FUROSEMIDE 20 MG TAB PO SCH (21:31)
[2017-04-22] MEDS: ACETAMINOPHEN/HYDROcodone 325 MG/10 MG TAB PO PRN ×2 (00:17→11:29)
[2017-04-22 04:35] VITALS: BP 124/68; PULSE 103; RESP 18; TEMP 98.3; O2SAT 96
[2017-04-22] MEDS: HYOSCYAMINE SOLN 0.125 MG/ML 15 ML BTL PO SCH ×4 (05:00→22:16)
[2017-04-22] MEDS: cefTRIAXone INJ 1,000 MG in SODIUM CHLORIDE 0.9% INJ 100 ML IV SCH (06:00)
[2017-04-22] MEDS: traMADol HCL 50 MG TAB PO PRN ×2 (06:45→22:11)
[2017-04-22] MEDS: GLIMEPIRIDE 1 MG TAB PO SCH ×2 (07:00→18:40)
[2017-04-22] MEDS: RESP: ALBUTEROL 2.5 MG/IPRATROPIUM 0.5 MG NEB (SCH) NEB ×4 (07:32→20:29)
[2017-04-22 08:00] VITALS: BP 140/66; PULSE 97; RESP 16; TEMP 97.8; O2SAT 94
[2017-04-22] MEDS: SODIUM CHLORIDE 0.9% FLUSH 10 ML FLUSH IV FLUSH SCH (09:00)
[2017-04-22] MEDS: DOCUSATE SODIUM 50 MG/SENNA 8.6 MG TAB PO SCH ×2 (09:00→22:12)
[2017-04-22] MEDS: FAMOTIDINE 20 MG TAB PO SCH ×2 (09:59→22:12)
[2017-04-22] MEDS: PANTOPRAZOLE SOD 40 MG DELAYED RELEASE TAB PO SCH (09:59)
[2017-04-22] MEDS: FINASTERIDE 5 MG TAB PO SCH (09:59)
[2017-04-22] MEDS: CILOSTAZOL 100 MG TAB PO SCH ×2 (09:59→22:12)
[2017-04-22] MEDS: buPROPion HCL 150 MG SUSTAINED RELEASE TAB PO SCH ×2 (09:59→22:12)
[2017-04-22] MEDS: CLOPIDOGREL 75 MG TAB PO SCH (09:59)
[2017-04-22] MEDS: FERROUS SULFATE 325 MG (65 MG ELEMENTAL IRON) TAB PO SCH (09:59)
[2017-04-22] MEDS: CARVEDILOL 3.125 MG TAB PO SCH ×2 (10:00→22:13)
[2017-04-22] MEDS: TAMSULOSIN HCL 0.4 MG CAP PO SCH ×2 (10:00→22:13)
[2017-04-22] MEDS: MULTIVITAMINS/MINERALS THERAPEUTIC TAB PO SCH (10:00)
[2017-04-22] MEDS: ASCORBIC ACID 500 MG TAB PO SCH (10:00)
[2017-04-22] MEDS: AZITHROMYCIN 250 MG TAB PO SCH (10:01)
[2017-04-22] MEDS: CHOLECALCIFEROL (VIT D3) 1000 UNIT TAB PO SCH (10:01)
[2017-04-22] MEDS: METOCLOPRAMIDE HCL 10 MG TAB PO SCH ×3 (10:01→18:40)
[2017-04-22] MEDS: ASPIRIN 81 MG CHEW TAB CHEW SCH (10:04)
--- NOTE | 2017-04-22 10:27 | HHI.DS ---
Discharge Summary Admission Date Apr 20, 2017 at 13:57 Discharge Date: Apr 22, 2017 Admitting Diagnosis right Pleural effusion hypoglycemia (1) Pleural effusion ICD Codes: J90 - Pleural effusion, not elsewhere classified Status: Acute (2) Mesenteric artery insufficiency ICD Codes: K55.1 - Chronic vascular disorders of intestine Status: Chronic (3) Hypoglycemia Diagnosis: Principal ICD Codes: E16.2 - Hypoglycemia, unspecified Status: Resolved CBC/BMP: 04/21/17 1813 04/21/17 0600 Significant Findings Laboratory Tests Test 04/20/17 01:38 04/20/17 02:50 04/21/17 06:00 04/21/17 18:13 White Blood Count 14.4 TH/MM3 (4.0-11.0) 13.7 TH/MM3 (4.0-11.0) 16.4 TH/MM3 (4.0-11.0) Red Blood Count 3.32 MIL/MM3 (4.50-5.90) 3.82 MIL/MM3 (4.50-5.90) 3.50 MIL/MM3 (4.50-5.90) Hemoglobin 9.3 GM/DL (13.0-17.0) 10.8 GM/DL (13.0-17.0) 9.7 GM/DL (13.0-17.0) Hematocrit 28.2 % (39.0-51.0) 32.6 % (39.0-51.0) 29.8 % (39.0-51.0) Platelet Count 598 TH/MM3 (150-450) 816 TH/MM3 (150-450) 767 TH/MM3 (150-450) Neutrophils (%) (Auto) 86.4 % (16.0-70.0) 81.7 % (16.0-70.0) Lymphocytes (%) (Auto) 6.0 % (9.0-44.0) Neutrophils # (Auto) 12.5 TH/MM3 (1.8-7.7) 11.2 TH/MM3 (1.8-7.7) Lymphocytes # (Auto) 0.9 TH/MM3 (1.0-4.8) Random Glucose 124 MG/DL (74-106) 167 MG/DL (74-106) Total Protein 6.1 GM/DL (6.4-8.2) Albumin 2.1 GM/DL (3.4-5.0) 2.7 GM/DL (3.4-5.0) Calcium Level 7.6 MG/DL (8.5-10.1) 8.3 MG/DL (8.5-10.1) Potassium Level 3.4 MEQ/L (3.5-5.1) B-Type Natriuretic Peptide 437 PG/ML (0-100) Estimat Glomerular Filtration Rate 87 ML/MIN (>89) Prothrombin Time 12.7 SEC (9.8-11.6) Imaging Last 72 hours Impressions Chest X-Ray 04/20/17 0000 Signed Impressions: Service Date/Time: Thursday, April 20, 2017 14:37 - CONCLUSION: 1. Mildly loculated small to moderate right pleural effusion with associated right lower lobe airspace disease. Addison Dietrich MD Chest X-Ray 04/20/17 0000 Signed Impressions: Service Date/Time: Thursday, April 20, 2017 02:57 - CONCLUSION: 1. Moderate right pleural effusion. No pneumothorax. Jorge Jacobs MD PE at Discharge HEENT - AT and NC Resp - decreased BS at right base otherwise CTA CV - RRR without M/R/G Abd - soft and nontender with active BS MS - FROM without deformity Hospital Course He was admitted with hypoglycemia that responded to adjusting meds. He was found to have loculated right pleural effusion. Pulm was consulted and surgery suggested due to his previous mesenteric bypass this was not unexpected. He denies SOB and is medically cleared for D/C home for F/U with his PCP. Pt Condition on Discharge: Good Discharge Disposition: Discharge Home Discharge Instructions DIET: Follow Instructions for: As Tolerated, No Restrictions Activities you can perform: Regular-No Restrictions Luca Crain Apr 22, 2017 10:27
[2017-04-22 16:00] VITALS: BP 139/64; PULSE 86; RESP 16; TEMP 97.8; O2SAT 92
--- NOTE | 2017-04-22 18:56 | HHI.PR ---
Subjective Remarks Off O2 No SOB at rest.Feels OK Seen by Dr Sanchez. No thoracentesis planned since this is an expected finding after Mesenteric bypass. Objective Vital Signs Date Time Temp Pulse Resp B/P (MAP) Pulse Ox O2 Delivery O2 Flow Rate FiO2 04/22/17 04:35 98.3 103 18 124/68 (86) 96 04/21/17 23:58 98.8 93 18 141/67 (91) 93 04/21/17 19:52 98.6 106 18 149/66 (93) 92 04/21/17 19:44 99 Nasal Cannula 3.00 I/O 04/21/17 04/21/17 04/21/17 04/22/17 04/22/17 04/22/17 07:00 15:00 23:00 07:00 15:00 23:00 Intake Total 0 ml 720 ml 240 ml 480 ml Balance 0 ml 720 ml 240 ml 480 ml Intake Oral 0 ml 720 ml 240 ml 480 ml # Voids 6 8 2 2 # Bowel Movements 1 1 0 0 Result Diagram: 04/21/17 1813 04/21/17 0600 Objective Remarks GENERAL: This averagely built elderly man who is alert and oriented in no acute distress. Mild pallor, no cyanosis or icterus. HEENT: Head normocephalic. Pupils are reactive. Tongue is moist. Throat was clear. Nasal mucosa clear NECK: Supple. No bruits or thyroid enlargement. CHEST: Distant breath sounds over the right lower chest with dullness to percussion at the right base. HEART: Heart sounds are regular S1-S2. No murmur. ABDOMEN: Abdomen is protuberant. There is an incision in the midline with molly and there is no inflammation or drainage from the wound. Bowel sounds are active. No organomegaly. EXTREMITIES: Decreased peripheral pulses. No calf tenderness. Reflexes are 1+ with no gross motor deficits. Cranial nerves grossly intact. RECTAL: Exam is deferred. Assessment and Plan Assessment and Plan IMPRESSION 1. Right pleural effusion with basilar atelectasis. 2. Status post mesenteric artery bypass. 3. History of diabetes mellitus. 4. Hypertension, hyperlipidemia. 5. Obstructive sleep apnea syndrome. Plan : 1. D/W Dr Sanchez and he recommended no intervention for the Effusion 2. D/C O2. 3. PO Lasix daily 4. Cont CPAP at HS. 5. OK to go home per Dr Barba. Thank You Burke Young MD Apr 22, 2017 18:56
[2017-04-22 20:31] VITALS: O2SAT 92
[2017-04-22 20:43] VITALS: BP 151/47; PULSE 86; RESP 18; TEMP 97.7; O2SAT 97
[2017-04-22] MEDS: ATORVASTATIN 40 MG TAB PO SCH (22:12)
[2017-04-22] MEDS: FENOFIBRATE 145 MG TAB PO SCH (22:12)
[2017-04-22] MEDS: LOSARTAN 50 MG TAB PO SCH (22:13)
[2017-04-22] MEDS: FUROSEMIDE 20 MG TAB PO SCH (22:13)
[2017-04-23 00:43] VITALS: BP 136/75; PULSE 89; RESP 18; TEMP 97.5; O2SAT 98
[2017-04-23 03:52] VITALS: BP 125/55; PULSE 83; RESP 18; TEMP 98.7; O2SAT 99
[2017-04-23] MEDS: HYOSCYAMINE SOLN 0.125 MG/ML 15 ML BTL PO SCH (05:00)
[2017-04-23 08:00] VITALS: BP 123/52; PULSE 97; RESP 16; TEMP 98.6; O2SAT 97
[2017-04-23] MEDS: RESP: ALBUTEROL 2.5 MG/IPRATROPIUM 0.5 MG NEB (SCH) NEB ×3 (08:00→16:00)
[2017-04-23 08:37] VITALS: BP 123/52; PULSE 97; RESP 16; TEMP 98.6; O2SAT 95
[2017-04-23] MEDS: CARVEDILOL 3.125 MG TAB PO SCH (08:39)
[2017-04-23] MEDS: MULTIVITAMINS/MINERALS THERAPEUTIC TAB PO SCH (08:39)
[2017-04-23] MEDS: ASCORBIC ACID 500 MG TAB PO SCH (08:39)
[2017-04-23] MEDS: FERROUS SULFATE 325 MG (65 MG ELEMENTAL IRON) TAB PO SCH (08:39)
[2017-04-23] MEDS: AZITHROMYCIN 250 MG TAB PO SCH (08:39)
[2017-04-23] MEDS: GLIMEPIRIDE 1 MG TAB PO SCH (08:39)
[2017-04-23] MEDS: CLOPIDOGREL 75 MG TAB PO SCH (08:39)
[2017-04-23] MEDS: CILOSTAZOL 100 MG TAB PO SCH (08:39)
[2017-04-23] MEDS: FINASTERIDE 5 MG TAB PO SCH (08:39)
[2017-04-23] MEDS: PANTOPRAZOLE SOD 40 MG DELAYED RELEASE TAB PO SCH (08:39)
[2017-04-23] MEDS: buPROPion HCL 150 MG SUSTAINED RELEASE TAB PO SCH (08:39)
[2017-04-23] MEDS: METOCLOPRAMIDE HCL 10 MG TAB PO SCH (08:40)
[2017-04-23] MEDS: CHOLECALCIFEROL (VIT D3) 1000 UNIT TAB PO SCH (08:40)
[2017-04-23] MEDS: ASPIRIN 81 MG CHEW TAB CHEW SCH (08:40)
[2017-04-23] MEDS: ACETAMINOPHEN/HYDROcodone 325 MG/10 MG TAB PO PRN (08:40)
[2017-04-23] MEDS: TAMSULOSIN HCL 0.4 MG CAP PO SCH (08:40)
[2017-04-23] MEDS: FAMOTIDINE 20 MG TAB PO SCH (08:40)
[2017-04-23] MEDS: SODIUM CHLORIDE 0.9% FLUSH 10 ML FLUSH IV FLUSH SCH (08:41)
[2017-04-23] MEDS: cefTRIAXone INJ 1,000 MG in SODIUM CHLORIDE 0.9% INJ 100 ML IV SCH (08:42)
[2017-04-23] MEDS: DOCUSATE SODIUM 50 MG/SENNA 8.6 MG TAB PO SCH (08:50)
--- NOTE | 2017-04-23 09:10 | HHI.DS ---
Discharge Summary Admission Date Apr 20, 2017 at 13:57 Discharge Date: Apr 23, 2017 Admitting Diagnosis hypoglycemia (1) Pleural effusion ICD Codes: J90 - Pleural effusion, not elsewhere classified Status: Acute (2) Mesenteric artery insufficiency ICD Codes: K55.1 - Chronic vascular disorders of intestine Status: Chronic (3) Hypoglycemia Diagnosis: Principal ICD Codes: E16.2 - Hypoglycemia, unspecified Status: Resolved CBC/BMP: 04/21/17 1813 04/21/17 0600 Significant Findings Laboratory Tests Test 04/21/17 06:00 04/21/17 18:13 White Blood Count 13.7 TH/MM3 (4.0-11.0) 16.4 TH/MM3 (4.0-11.0) Red Blood Count 3.82 MIL/MM3 (4.50-5.90) 3.50 MIL/MM3 (4.50-5.90) Hemoglobin 10.8 GM/DL (13.0-17.0) 9.7 GM/DL (13.0-17.0) Hematocrit 32.6 % (39.0-51.0) 29.8 % (39.0-51.0) Platelet Count 816 TH/MM3 (150-450) 767 TH/MM3 (150-450) Neutrophils (%) (Auto) 81.7 % (16.0-70.0) Neutrophils # (Auto) 11.2 TH/MM3 (1.8-7.7) Random Glucose 167 MG/DL (74-106) Albumin 2.7 GM/DL (3.4-5.0) Calcium Level 8.3 MG/DL (8.5-10.1) Estimat Glomerular Filtration Rate 87 ML/MIN (>89) Prothrombin Time 12.7 SEC (9.8-11.6) PE at Discharge HEENT - AT and NC Resp - decreased BS at right base otherwise CTA CV - RRR without M/R/G Abd - soft and nontender with active BS MS - FROM without deformity Pt Condition on Discharge: Good Discharge Disposition: Discharge to SNF Discharge Instructions DIET: Follow Instructions for: As Tolerated, No Restrictions Activities you can perform: Regular-No Restrictions Luca Crain Apr 23, 2017 09:10
[2017-04-23] MEDS ORDERED: HYDR-2374 PO (18:08)
[2017-04-23] MEDS ORDERED: ULTR50TA5 PO (18:09)
== END 2017-04-23 18:23 | disposition home or self-care (01) | DRG 187 ==
LOC: NEPC 01:03 → NEDA 03:20 → NEPGCP 05:32 → OBSVTOIN 13:57 → N06B 18:42
PROVIDERS: ADMIT Family Medicine; ATTEND Family Medicine
DX: J90 Pleural effusion, not elsewhere classified (principal); I42.9 Cardiomyopathy, unspecified; K55.1 Chronic vascular disorders of intestine; E11.51 Type 2 diabetes mellitus with diabetic peripheral angiopathy without gangrene; J98.11 Atelectasis; E11.649 Type 2 diabetes mellitus with hypoglycemia without coma; I25.10 Atherosclerotic heart disease of native coronary artery without angina pectoris; K21.9 Gastro-esophageal reflux disease without esophagitis; N40.0 Benign prostatic hyperplasia without lower urinary tract symptoms; G47.33 Obstructive sleep apnea (adult) (pediatric); E78.5 Hyperlipidemia, unspecified; D72.829 Elevated white blood cell count, unspecified; I10 Essential (primary) hypertension; M19.90 Unspecified osteoarthritis, unspecified site; Z23 Encounter for immunization; Z79.84 Long term (current) use of oral hypoglycemic drugs; Z95.820 Peripheral vascular angioplasty status with implants and grafts; Z95.1 Presence of aortocoronary bypass graft; I25.2 Old myocardial infarction; Z95.5 Presence of coronary angioplasty implant and graft; Z87.891 Personal history of nicotine dependence
CPT/HCPCS: 71010; 71030; 76604; 76937; 80053; 81001; 82948; 83605; 83880; 85025; 85027; 85610; 90471; 90472; 90686; 90732; 94640; 94664; G0008; G0009; J0696; Q2038